=== PATIENT | male | born 1955 | race Caucasian/White ===

== ENCOUNTER 2016-12-05 16:51 | Inpatient (IN) | payer MEDICARE ==
[2016-12-05 17:31] LABS: AUTOMATED BASOPHIL 0.3 % (0-2); AUTOMATED EOSINOPHIL 0.5 % (0-5); AUTOMATED LYMPH 5.4 % (17-44); AUTOMATED MONOCYTE 6.1 % (3-10); AUTOMATED NEUTROPHIL 87.7 % (45-76); MPV 8.4 fL (7.4-10.4)
[2016-12-05 17:41] LABS: BLOOD UREA NITROGEN 10 MG/DL (9-20); CALC CORRECTED 9.1 MG/DL (8.4-10.2); CALCULATED OSMOLALITY 263 MOs/Kg (270-290); CHLORIDE 90 mEq/L (98-107); GLUCOSE 240 MG/DL (70-99); SODIUM LEVEL 133 mEq/L (137-146)
[2016-12-05] MEDS ORDERED: MORPHINE 4 MG/ML INJECTION IV ONE (18:12)
[2016-12-05] MEDS ORDERED: ONDANSETRON HCL 4 MG/2 ML VIAL IV ONE (18:12)
[2016-12-05] MEDS ORDERED: NS 1,000 ML IV ONE ×4 (18:12→23:59)
[2016-12-05] MEDS ORDERED: ACETAMINOPHEN 325 MG/TAB TABLET PO ONE (18:15)
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
[2016-12-05] MEDS ORDERED: Clindamycin 900 mg/D5W 50 ml 900 MG/50 ML IVB IV ONE (19:03)
[2016-12-05] MEDS ORDERED: POTASSIUM CHLORIDE 20 MEQ TAB PO ONE (19:29)
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
[2016-12-05] MEDS ORDERED: Pharmacy Review for Metformin - IV Contrast Given SCH (21:00)
[2016-12-05 21:25] LABS: ETOH-MGDL < 10 mg/dL
[2016-12-05 21:26] LABS: LEUKOCYTES/URINE NEG (NEGATIVE); NITRITE/URINE NEG (NEGATIVE); RBC/URINE 0-2 (0-2); URINE OCCULT BLOOD NEG (NEG/TRACE); WBC/URINE 0-2 (0-2)
[2016-12-05] MEDS ORDERED: DEXTROSE 25 GM/50 ML PFS IV PRN (21:57)
[2016-12-05] MEDS ORDERED: GLUCAGON 1 MG VIAL SQ PRN (21:57)
[2016-12-05] MEDS ORDERED: GLUCOSE (ORAL GEL) 15 GM TUBE PO PRN (21:57)
[2016-12-05] MEDS ORDERED: Pharmacy Order Set Alert SCH (22:00)
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
[2016-12-05] MEDS ORDERED: GUAIFEN 100 MG-DEXTROMETH 10 MG PER 5 ML PO PRN (22:09)
[2016-12-05] MEDS ORDERED: LORAZEPAM 1 MG TAB PO PRN ×3 (22:09)
[2016-12-05] MEDS ORDERED: ALBUTEROL 0.083% 3 ML NEB NEB PRN (22:09)
[2016-12-05] MEDS ORDERED: Docusate Sodium 100 MG CAP PO PRN (22:09)
[2016-12-05] MEDS ORDERED: ONDANSETRON HCL 4 MG/2 ML VIAL IV PRN (22:09)
[2016-12-05] MEDS ORDERED: BISACODYL 5 MG TAB PO PRN (22:09)
[2016-12-05] MEDS ORDERED: LORAZEPAM 2 MG/ML VIAL IV PRN ×3 (22:09)
[2016-12-05] MEDS ORDERED: PROMETHAZINE 25 MG/ML VIAL IV PRN (22:09)
[2016-12-05] MEDS ORDERED: SIMETHICONE 80 MG TAB PO PRN (22:09)
[2016-12-05] MEDS ORDERED: TEMAZEPAM 15 MG CAP PO PRN (22:09)
[2016-12-05] MEDS ORDERED: BENZONATATE 100 MG PERLES PO PRN (22:09)
[2016-12-05] MEDS ORDERED: SENNA CONCENTRATE TAB PO PRN (22:09)
[2016-12-05] MEDS: PIPERACILLIN AND TAZOBACTAM 3.375 GM in D5W 100 ML IV SCH (22:10)
[2016-12-05] MEDS: METOPROLOL TARTRATE 25 MG TAB PO SCH (22:10)
[2016-12-05] MEDS: Fluconazole 400 mg in NS 400 MG/200 ML RTU IV SCH (22:56)
[2016-12-05] MEDS: Clindamycin 600 mg/D5W 50 ml 600 MG/50 ML IVB IV SCH (22:59)
[2016-12-05] MEDS ORDERED: Vaccine Screening Complete SCH (23:00)
[2016-12-05] MEDS ORDERED: Alcohol Withdrawal Scale Orders XX SCH (23:00)
[2016-12-05] MEDS: FOLIC ACID 1 MG, THIAMINE 100 MG, VITAMINS, MULTIPLE 10 ML in NS 1,000 ML IV SCH ×4 (23:56)
[2016-12-06] MEDS: MORPHINE 2 MG/ML INJECTION IV PRN ×4 (00:24→23:45)
[2016-12-06] MEDS: Albuterol/Ipratropium Neb 3 ML NEB NEB SCH ×4 (01:33→20:35)
[2016-12-06] MEDS: PIPERACILLIN AND TAZOBACTAM 3.375 GM in D5W 100 ML IV SCH ×4 (03:01→21:14)
[2016-12-06 04:11] LABS: MPV 8.8 fL (7.4-10.4)
[2016-12-06 04:45] LABS: BLOOD UREA NITROGEN 10 MG/DL (9-20); CALCIUM 7.4 MG/DL (8.4-10.2); CALCULATED OSMOLALITY 262 MOs/Kg (270-290); CHLORIDE 98 mEq/L (98-107); GLUCOSE 242 MG/DL (70-99); SODIUM LEVEL 132 mEq/L (137-146)
[2016-12-06] MEDS: NS 1,000 ML IV SCH (05:00)
[2016-12-06] MEDS: REGULAR INSULIN 100 UNITS/ML - 3 ML VIAL SQ SCH ×4 (05:00→21:15)
[2016-12-06] MEDS ORDERED: Vancomycin HCl 0 MG in D5W 500 ML IV SCH (06:00)
[2016-12-06] MEDS: Clindamycin 600 mg/D5W 50 ml 600 MG/50 ML IVB IV SCH ×2 (07:37→14:49)
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
[2016-12-06] MEDS ORDERED: PNEUMOCOCCAL 0.5 ML VIAL IM ONE (08:00)
[2016-12-06] MEDS ORDERED: LABETALOL 20 MG/4 ML SYRINGE IV PRN (08:23)
[2016-12-06] MEDS ORDERED: HYDROmorphone 1 MG INJECTION IV PRN ×2 (08:23)
[2016-12-06] MEDS ORDERED: FENTANYL 100 MCG/2 ML VIAL IV PRN ×2 (08:23)
[2016-12-06] MEDS ORDERED: ONDANSETRON HCL 4 MG/2 ML VIAL IV PRN (08:23)
[2016-12-06] MEDS ORDERED: PROMETHAZINE 25 MG/ML VIAL IV PRN ×3 (08:23→09:23)
[2016-12-06] MEDS ORDERED: hydrALAZINE 20 MG/ML VIAL IV PRN (08:23)
[2016-12-06] MEDS ORDERED: MEPERIDINE 25 MG/ML TUBEX IV PRN (08:23)
[2016-12-06] MEDS ORDERED: ONDANSETRON HCL 4 MG ODT TAB PO PRN (08:23)
--- NOTE | 2016-12-06 08:24 | SC.ANESPOS ---
Post-Anesthesia Note LOC: Fully Awake Post-Anesthesia Assessment: Awake, Returned to Baseline, Hemodynamically Stable , Pain Control Adequate Phase I & II Recovery Complete: Yes Apparent Anesthesia Complication: No : N - Vital Signs Blood Pressure: 178/81 Pulse: 80 Resp Rate: 18 O2 Sat: 94 Temp: 98.5 F
[2016-12-06] MEDS: METOPROLOL TARTRATE 25 MG TAB PO SCH ×2 (08:25→21:14)
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
--- NOTE | 2016-12-06 09:18 | HIMOPRPT ---
DATE OF PROCEDURE: 12/06/16 PREOPERATIVE DIAGNOSIS: Right 5th toe gangrene with diabetic right foot infection POSTOPERATIVE DIAGNOSIS: same, final pathology pending PROCEDURES: Right 5th toe transmetatarsal amputation, wide drainage of right foot diabetic foot infection. SURGEON: Joe Lawrence MD ANESTHESIA: General COMPLICATIONS: None. SPECIMENS: Right 5th toe with surrounding tissue to pathology, purulent fluid right foot to microbiology PACKINGS AND DRAINS: Betadine-soaked Kerlix to the wound BLOOD LOSS: 3 cubic centimeters. OPERATIVE FINDINGS AND TECHNIQUE: With consent the patient was brought to the operating suite and placed in the supine position. Following general anesthesia , the right foot was prepped and draped in usual fashion. The obvious gangrenous change of the right 5th toe was identified. Using a 15 Blade the right 5th toe was surgically excised and incision was made laterally along the foot to the mid foot portion. A moderate amount of purulent fluid was identified. A portion of this was sent off for microbiologic characterization. The right toe down to the transmetatarsal area was amputated. The patient had a prior chronic fracture of the right 5th transmetatarsal bone. The 5th toe /digit was amputated at that point. There is no evidence of any necrotizing fasciitis. Generous wide debridement and drainage was accomplished using a blunt dissecting instrument. Wound was irrigated copiously. Hemostasis was achieved with electrocautery. The wound was then packed with Betadine-soaked Kerlix. After that the wound was covered with fluff dressings and wrapped in a Kerlix dressing. The patient tolerated the procedure well. Pathology is pending.
[2016-12-06] MEDS ORDERED: IBUPROFEN 600 MG TAB PO PRN (09:23)
[2016-12-06] MEDS ORDERED: DIPHENHYDRAMINE 25 MG CAP PO PRN (09:23)
[2016-12-06] MEDS ORDERED: METOCLOPRAMIDE 10 MG/2 ML VIAL IV ONE (10:00)
[2016-12-06] MEDS ORDERED: PROPOFOL 200 MG/20 ML VIAL IV ONE (10:00)
[2016-12-06] MEDS ORDERED: LIDOCAINE 4% 5 ML AMPULE NEB ONE (10:00)
[2016-12-06] MEDS ORDERED: FENTANYL 100 MCG/2 ML VIAL IV ONE (10:00)
[2016-12-06] MEDS ORDERED: ONDANSETRON HCL 4 MG/2 ML VIAL IV ONE (10:00)
[2016-12-06] MEDS ORDERED: FENTANYL 100 MCG/2 ML VIAL ONE (10:13)
[2016-12-06] MEDS: LISINOPRIL 20 MG TAB PO SCH (11:16)
[2016-12-06] MEDS: NICOTINE 21 MG PATCH TOP SCH (12:21)
[2016-12-06] MEDS ORDERED: CHAPSTICK LIP BALM ONE (13:24)
[2016-12-06] MEDS: OXYCODONE HCL 5 MG TABLET PO PRN ×2 (14:46→21:16)
[2016-12-06] MEDS: PROBIOTIC BLEND TAB PO SCH (17:23)
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
[2016-12-06] MEDS: Fluconazole 400 mg in NS 400 MG/200 ML RTU IV SCH (23:44)
[2016-12-06] MEDS: FOLIC ACID 1 MG, THIAMINE 100 MG, VITAMINS, MULTIPLE 10 ML in NS 1,000 ML IV SCH ×4 (23:48)
[2016-12-07] MEDS: Albuterol/Ipratropium Neb 3 ML NEB NEB SCH ×4 (02:03→19:50)
[2016-12-07] MEDS: PIPERACILLIN AND TAZOBACTAM 3.375 GM in D5W 100 ML IV SCH ×4 (03:41→22:05)
[2016-12-07] MEDS: NS 1,000 ML IV SCH ×2 (03:42→06:17)
[2016-12-07] MEDS: MORPHINE 2 MG/ML INJECTION IV PRN (04:03)
[2016-12-07 05:23] LABS: BLOOD UREA NITROGEN 9 MG/DL (9-20); CALCIUM 7.6 MG/DL (8.4-10.2); CALCULATED OSMOLALITY 257 MOs/Kg (270-290); CHLORIDE 100 mEq/L (98-107); GLUCOSE 160 MG/DL (70-99); SODIUM LEVEL 132 mEq/L (137-146)
[2016-12-07] MEDS: OXYCODONE HCL 5 MG TABLET PO PRN ×2 (06:17→16:42)
[2016-12-07] MEDS: REGULAR INSULIN 100 UNITS/ML - 3 ML VIAL SQ SCH ×4 (06:25→22:10)
[2016-12-07] MEDS ORDERED: PNEUMOCOCCAL 0.5 ML VIAL IM ONE (08:00)
--- NOTE | 2016-12-07 09:19 | PCM.SURGRO ---
- Subjective Post Op Day: 1 Patient: Reports: No new complaints - Objective / Physical Exam Vital Signs: Temperature: 99.5 F (12/07/16 07:53) HR: 82 (12/07/16 07:53)RR: 18 (12/07/16 07: 53) BP: 137/63 (12/07/16 07:53)Pulse Ox: 93 (12/07/16 08:00) General: Alert Respiratory: Diminished Cardiovascular: Regular rate and rhythm Extremities: Other (Right foot dressing intact) Laboratory/Diagnostics Reviewed: Laboratory Results - last 24 hr 12/05/16 12/06/16 12/06/16 21:10 10:31 11:47 Sodium Potassium Chloride Carbon Dioxide Anion Gap BUN Creatinine Estimated GFR (MDRD) Glucose POC Capillary Glucose 247 H 216 H Calculated Osmolality Calcium Ur Random Microalbumin 244.8 Vancomycin Trough 12/06/16 12/06/16 12/07/16 16:11 20:52 05:00 Sodium 132 L Potassium 3.5 Chloride 100 Carbon Dioxide 25 Anion Gap 11 BUN 9 Creatinine 0.70 Estimated GFR (MDRD) > 60 Glucose 160 H POC Capillary Glucose 200 H 209 H Calculated Osmolality 257 L Calcium 7.6 L Ur Random Microalbumin Vancomycin Trough 10.8 12/07/16 06:25 Sodium Potassium Chloride Carbon Dioxide Anion Gap BUN Creatinine Estimated GFR (MDRD) Glucose POC Capillary Glucose 179 H Calculated Osmolality Calcium Ur Random Microalbumin Vancomycin Trough - Assessment and Plan (1) Gangrene of foot Acute I96 - GANGRENE, NOT ELSEWHERE CLASSIFIED Present on Admission: Yes Comment/Plan: Postop day 1. Status post right 5th toe transmetatarsal amputation. He also had drainage of the extensive right foot infection likely due to a diabetic foot. Will consult physical therapy to see if the wound VAC can be placed on this wound. Alternatively will start Aquacel dressings to the area. Hopefully with a wound VAC this area will heal. At some point will check noninvasive vascular studies to see if he has vascular supply sufficient for wound healing. Continue antibiotic therapy. Continue medical management of his comorbid conditions.
[2016-12-07] MEDS: METOPROLOL TARTRATE 25 MG TAB PO SCH ×2 (09:51→23:58)
[2016-12-07] MEDS: LISINOPRIL 20 MG TAB PO SCH (09:51)
[2016-12-07] MEDS: NICOTINE 21 MG PATCH TOP SCH (09:52)
[2016-12-07] MEDS: PROBIOTIC BLEND TAB PO SCH ×2 (12:14→17:40)
--- NOTE | 2016-12-07 17:17 | GENMEDPROG ---
Subjective Note: Patient awake and alert no complaint today. Doing well postoperative day 1. Notes Reviewed: Yes Events from last night noted and discussed with Clinical Staff Current Medication List: Reviewed Currently: Denies: Abdominal Pain, Fever/Chills, Ambulating DVT Prophylaxis: Yes - Physical Examination Vital Signs and I&O: Last Vital Signs Temp 98.1 F 12/07/16 16:00 Pulse 82 12/07/16 16:00 Resp 18 12/07/16 16:00 BP 157/70 12/07/16 16:00 Pulse Ox 90 L 12/07/16 16:00 Oxygen Pulse Oxygen Saturation 90 O2 Device Nasal Cannula Oxygen Flow Rate 2 Fraction of Inspired Oxygen ( FIO2) Intake & Output 12/04/16 12/05/16 12/06/16 12/07/16 23:59 23:59 23:59 23:59 Intake Total 1500 6182 1200 Output Total 2485 475 Balance 1500 3697 725 Patient's weight 80.541 kg 80.995 kg 86.364 kg General: Alert Respiratory: Diminished Cardiovascular: Regular rate and rhythm GI: Normal bowel sounds (normal active sounds), Soft (non-distended), Non tender , No hepatospenomegaly, No masses Extremities/Musculoskeletal: Other (Right foot dressing intact) Skin: Warm,Dry and Intact, No rashes, No significant lesion Neurological: Strength at 5/5 X4 ext (Motor 5/5 throughout.), Normal tone, Cranial nerves 3-12 NL ( 2-12 grossly intact.) Lab/DI/Studies Reviewed: Abnormal Lab Results 12/06/16 12/07/16 12/07/16 20:52 05:00 06:25 Sodium 132 L Glucose 160 H POC Capillary Glucose 209 H 179 H Calculated Osmolality 257 L Calcium 7.6 L 12/07/16 12/07/16 11:08 16:20 Sodium Glucose POC Capillary Glucose 220 H 127 H Calculated Osmolality Calcium - Assessment (1) Cellulitis of right foot Acute L03.115 - CELLULITIS OF RIGHT LOWER LIMB Comment/Plan: Status post amputation of fifth toe of the right foot. (2) Gangrene of foot Acute I96 - GANGRENE, NOT ELSEWHERE CLASSIFIED Comment/Plan: For surgical assistance appreciated dressing clean and dry patient for wound VAC. (3) Sepsis Acute A41.9 - SEPSIS, UNSPECIFIED ORGANISM Comment/Plan: IV antibiotics will include Zosyn vancomycin and Diflucan for the incidental yeast in urine. Do not feel the clindamycin is necessary given the activity of the Zosyn and the fact that vancomycin will be most effective against staph. Await cultures. (4) Type 2 diabetes mellitus with diabetic polyneuropathy Chronic E11.42 - TYPE 2 DIABETES MELLITUS WITH DIABETIC POLYNEUROPATHY Qualifiers: Diabetes mellitus adjunct faculty for medical terminology insulin use: without adjunct faculty for medical terminology use Qualified Code(s): E11.42 - Type 2 diabetes mellitus with diabetic polyneuropathy Comment/Plan: Plan: Hold oral diabetes medications. Check fingerstick blood sugars q ac and hs. Sliding scale insulin. Ordered A1c and urine microalbumin. (5) Tobacco abuse Acute Z72.0 - TOBACCO USE Comment/Plan: Counseled to quit. I advised him this is the worse thing he can do. It is like pouring gasoline on a fire. Nicotine substitution will be offered. - Plan Continue IV antibiotics continue wound VAC and discharge planning. Patient will likely need skilled facility. Case Care Discussed with: Patient Education/Counseling Given To: Patient Education/Counseling Given Regarding: Diagnosis, Treatment, Prognosis, Disposition Plan Total Time: 45 mins Critical Care: No Couseling Time (>50% in counseling/coordination): No
--- NOTE | 2016-12-07 19:59 | GENMEDPROG ---
Chief Complaint: CRITICAL CARE NOTE S: NURSE CALLED. PATIENT IN DISTRESS. WORSENING SHORTNESS OF BREATH AND HYPOXIA. Subjective Note: CRITICAL CARE NOTE S: NURSE CALLED. PATIENT IN DISTRESS. WORSENING SHORTNESS OF BREATH AND HYPOXIA. ROS: GENERAL: No Fever. Chills, diaphoresis. Positive for fatigue/malaise. HEENT: No nasal discharge or bleeding. No throat pain or swelling. RESPIRATORY: Cough, wheezing, and shortness of breath. CARDIOVASCULAR: No chest pain or palpitations. GI: No abdominal pain, nausea, vomiting, diarrhea, constipation, or bloody stool. NEUROLOGICAL: No headache or focal weakness. INTEGUMENT: no rashes, itching, or lesions. MUSCULOSKELETAL: no new pain or joint swelling. GENITOURINARY: No dysuria or hematuria. ENDOCRINE: No polyuria or polydipsia. HEME: No chronic anemia, bleeding, or easy bruising. Notes Reviewed: Yes Events from last night noted and discussed with Clinical Staff Current Medication List: Reviewed Currently: Reports: Cough, Wheezing, MOORE, SOB, Tobacco Use/Hx DVT Prophylaxis: Yes - Physical Examination Vital Signs and I&O: Last Vital Signs Temp 98.2 F 12/07/16 19:33 Pulse 104 12/07/16 19:54 Resp 28 H 12/07/16 19:54 BP 158/80 12/07/16 19:33 Pulse Ox 91 12/07/16 19:54 Oxygen Pulse Oxygen Saturation 91 O2 Device Venturi Mask Oxygen Flow Rate 3 Fraction of Inspired Oxygen ( 55 FIO2) Intake & Output 12/05/16 12/06/16 12/07/16 12/08/16 05:59 05:59 05:59 05:59 Intake Total 4244 3438 2585 Output Total 800 1685 1075 Balance 3444 1753 1510 Patient's weight 80.995 kg 86.364 kg General: Alert Respiratory: Diminished Cardiovascular: Regular rate and rhythm Extremities/Musculoskeletal: Other (Right foot dressing intact) GENERAL: Ill-appearing, well nourished, in acute distress. HEENT: Normocephalic, atraumatic; pupils equal and round. Nares patent, without discharge or bleeding. No oropharyngeal lesions or erythema. Mucous membranes are dry. NECK: is supple, no masses, trachea midline. RESPIRATORY: Clear to auscultation bilaterally. Chest wall movements are symmetric. Tachypnea, severe. Use of accessory muscles to breathe. Bilateral coarse breath sounds and wheezing. CARDIOVASCULAR: Normal S1, S2. No murmurs, rubs, or gallops. PMI non-displaced. Carotids: no carotid bruits. Tachycardia. DP pulses 2+ bilaterally. GI: soft, nontender, non-distended, normal active bowel sounds. No hepatosplenomegaly. INTEGUMENT: Foot: right foot with 5th toe and portion of lateral foot removed. Wound vac over site. No erythema or edema at site. Right foot still with some erythema but decreased from admission. Red streaks on lower right leg but decreased from admission. Otherwise clean, dry, and intact. No rashes. MUSCULOSKELETAL: Moving all extremities. No cyanosis. No clubbing. Edema: none bilaterally. NEUROLOGICAL: Cranial nerves 2-12 grossly intact. Motor 4/5 throughout. Reflexes : 2+ bilaterally. Babinski: toes downgoing bilaterally. Sensory grossly intact to light touch. No pronator drift. PSYCHIATRIC: Fully oriented. Normal and appropriate affect. LYMPHATIC: No cervical lymphadenopathy. No supraclavicular lymphadenopathy. Lab/DI/Studies Reviewed: Laboratory Tests 12/05/16 12/05/16 12/05/16 17:18 17:18 17:18 WBC 18.8 H RBC 4.66 L Hgb 14.3 Hct 43.1 MCV 93 MCH 30.8 MCHC 33.3 RDW 14.1 Plt Count 311 MPV 8.4 Neut % (Auto) 87.7 H Lymph % (Auto) 5.4 L Nelson % (Auto) 6.1 Eos % (Auto) 0.5 Baso % (Auto) 0.3 Absolute Neuts (auto) 16.36 H Absolute Lymphs (auto) 0.94 Puncture Site pH pCO2 pO2 HCO3 Total CO2 Base Excess Vent Mode FiO2 % Specimen Drawn By Sodium 133 L Potassium 3.4 L Chloride 90 L Carbon Dioxide 31 Anion Gap 15 BUN 10 Creatinine 0.80 Estimated GFR (MDRD) > 60 Glucose 240 H POC Capillary Glucose Hemoglobin A1c Calculated Osmolality 263 L Lactic Acid 2.8 H Calcium 9.0 Corrected Calcium 9.1 Phosphorus Magnesium Total Bilirubin 1.1 AST 29 ALT 32 Alkaline Phosphatase 98 Creatine Kinase Troponin I [id number] Pept Total Protein 8.0 Albumin 3.9 Urine Color Urine Clarity Urine pH Ur Specific [place] Urine Protein Urine Glucose (UA) Urine Ketones Urine Occult Blood Urine Nitrite Urine Bilirubin Urine Urobilinogen Ur Leukocyte Esterase Urine RBC Urine WBC Urine Bacteria Urine Mucus Urine Yeast Ur Random Microalbumin Vancomycin Trough Plasma/Serum Ethyl Alc 12/05/16 12/05/16 12/05/16 17:18 17:18 17:18 WBC RBC Hgb Hct MCV MCH MCHC RDW Plt Count MPV Neut % (Auto) Lymph % (Auto) Nelson % (Auto) Eos % (Auto) Baso % (Auto) Absolute Neuts (auto) Absolute Lymphs (auto) Puncture Site pH pCO2 pO2 HCO3 Total CO2 Base Excess Vent Mode FiO2 % Specimen Drawn By Sodium Potassium Chloride Carbon Dioxide Anion Gap BUN Creatinine Estimated GFR (MDRD) Glucose POC Capillary Glucose Hemoglobin A1c Calculated Osmolality Lactic Acid Calcium Corrected Calcium Phosphorus Magnesium 2.10 1.70 Total Bilirubin AST ALT Alkaline Phosphatase Creatine Kinase 45 L Troponin I 0.06 [id number] Pept Total Protein Albumin Urine Color Urine Clarity Urine pH Ur Specific [place] Urine Protein Urine Glucose (UA) Urine Ketones Urine Occult Blood Urine Nitrite Urine Bilirubin Urine Urobilinogen Ur Leukocyte Esterase Urine RBC Urine WBC Urine Bacteria Urine Mucus Urine Yeast Ur Random Microalbumin Vancomycin Trough Plasma/Serum Ethyl Alc 12/05/16 12/05/16 12/05/16 17:18 19:59 21:10 WBC RBC Hgb Hct MCV MCH MCHC RDW Plt Count MPV Neut % (Auto) Lymph % (Auto) Nelson % (Auto) Eos % (Auto) Baso % (Auto) Absolute Neuts (auto) Absolute Lymphs (auto) Puncture Site pH pCO2 pO2 HCO3 Total CO2 Base Excess Vent Mode FiO2 % Specimen Drawn By Sodium Potassium Chloride Carbon Dioxide Anion Gap BUN Creatinine Estimated GFR (MDRD) Glucose POC Capillary Glucose Hemoglobin A1c 7.5 H Calculated Osmolality Lactic Acid Calcium Corrected Calcium Phosphorus Magnesium Total Bilirubin AST ALT Alkaline Phosphatase Creatine Kinase 36 L Troponin I 0.07 [id number]-[id number] Pept Total Protein Albumin Urine Color Rebecca Urine Clarity Clear Urine pH 6.0 Ur Specific [place] 1.005 Urine Protein 2+ H Urine Glucose (UA) 2+ Urine Ketones Neg Urine Occult Blood Neg Urine Nitrite Neg Urine Bilirubin Neg Urine Urobilinogen 8 H Ur Leukocyte Esterase Neg Urine RBC 0-2 Urine WBC 0-2 Urine Bacteria Few Urine Mucus Occ Urine Yeast Few H Ur Random Microalbumin Vancomycin Trough Plasma/Serum Ethyl Alc 12/05/16 12/05/16 12/05/16 21:10 22:13 22:13 WBC RBC Hgb Hct MCV MCH MCHC RDW Plt Count MPV Neut % (Auto) Lymph % (Auto) Nelson % (Auto) Eos % (Auto) Baso % (Auto) Absolute Neuts (auto) Absolute Lymphs (auto) Puncture Site pH pCO2 pO2 HCO3 Total CO2 Base Excess Vent Mode FiO2 % Specimen Drawn By Sodium Potassium Chloride Carbon Dioxide Anion Gap BUN Creatinine Estimated GFR (MDRD) Glucose POC Capillary Glucose Hemoglobin A1c Calculated Osmolality Lactic Acid 1.0 Calcium Corrected Calcium Phosphorus Magnesium Total Bilirubin AST ALT Alkaline Phosphatase Creatine Kinase 41 L Troponin I 0.06 [id number]-S-Pdrospipwce Pept Total Protein Albumin Urine Color Urine Clarity Urine pH Ur Specific [place] Urine Protein Urine Glucose (UA) Urine Ketones Urine Occult Blood Urine Nitrite Urine Bilirubin Urine Urobilinogen Ur Leukocyte Esterase Urine RBC Urine WBC Urine Bacteria Urine Mucus Urine Yeast Ur Random Microalbumin 244.8 Vancomycin Trough Plasma/Serum Ethyl Alc 12/06/16 12/06/16 12/06/16 00:01 03:10 03:10 WBC 12.9 H RBC 3.65 L Hgb 11.3 L D Hct 34.1 L MCV 94 MCH 31.0 MCHC 33.2 RDW 14.1 Plt Count 229 MPV 8.8 Neut % (Auto) Lymph % (Auto) Nelson % (Auto) Eos % (Auto) Baso % (Auto) Absolute Neuts (auto) Absolute Lymphs (auto) Puncture Site pH pCO2 pO2 HCO3 Total CO2 Base Excess Vent Mode FiO2 % Specimen Drawn By Sodium 132 L Potassium 4.0 Chloride 98 Carbon Dioxide 27 Anion Gap 11 BUN 10 Creatinine 0.70 Estimated GFR (MDRD) > 60 Glucose 242 H POC Capillary Glucose Hemoglobin A1c Calculated Osmolality 262 L Lactic Acid Calcium 7.4 L Corrected Calcium Phosphorus 3.4 Magnesium Total Bilirubin AST ALT Alkaline Phosphatase Creatine Kinase Troponin I [id number]-Rnmfcmippxh Pept Total Protein Albumin Urine Color Urine Clarity Urine pH Ur Specific [place] Urine Protein Urine Glucose (UA) Urine Ketones Urine Occult Blood Urine Nitrite Urine Bilirubin Urine Urobilinogen Ur Leukocyte Esterase Urine RBC Urine WBC Urine Bacteria Urine Mucus Urine Yeast Ur Random Microalbumin Vancomycin Trough Plasma/Serum Ethyl Alc 12/06/16 12/06/16 12/06/16 04:56 10:31 11:47 WBC RBC Hgb Hct MCV MCH MCHC RDW Plt Count MPV Neut % (Auto) Lymph % (Auto) Nelson % (Auto) Eos % (Auto) Baso % (Auto) Absolute Neuts (auto) Absolute Lymphs (auto) Puncture Site pH pCO2 pO2 HCO3 Total CO2 Base Excess Vent Mode FiO2 % Specimen Drawn By Sodium Potassium Chloride Carbon Dioxide Anion Gap BUN Creatinine Estimated GFR (MDRD) Glucose POC Capillary Glucose 222 H 247 H 216 H Hemoglobin A1c Calculated Osmolality Lactic Acid Calcium Corrected Calcium Phosphorus Magnesium Total Bilirubin AST ALT Alkaline Phosphatase Creatine Kinase Troponin I [id number]-Ijstrptqhyr Pept Total Protein Albumin Urine Color Urine Clarity Urine pH Ur Specific [place] Urine Protein Urine Glucose (UA) Urine Ketones Urine Occult Blood Urine Nitrite Urine Bilirubin Urine Urobilinogen Ur Leukocyte Esterase Urine RBC Urine WBC Urine Bacteria Urine Mucus Urine Yeast Ur Random Microalbumin Vancomycin Trough Plasma/Serum Ethyl Alc 12/06/16 12/06/16 12/07/16 16:11 20:52 05:00 WBC RBC Hgb Hct MCV MCH MCHC RDW Plt Count MPV Neut % (Auto) Lymph % (Auto) Nelson % (Auto) Eos % (Auto) Baso % (Auto) Absolute Neuts (auto) Absolute Lymphs (auto) Puncture Site pH pCO2 pO2 HCO3 Total CO2 Base Excess Vent Mode FiO2 % Specimen Drawn By Sodium 132 L Potassium 3.5 Chloride 100 Carbon Dioxide 25 Anion Gap 11 BUN 9 Creatinine 0.70 Estimated GFR (MDRD) > 60 Glucose 160 H POC Capillary Glucose 200 H 209 H Hemoglobin A1c Calculated Osmolality 257 L Lactic Acid Calcium 7.6 L Corrected Calcium Phosphorus Magnesium Total Bilirubin AST ALT Alkaline Phosphatase Creatine Kinase Troponin I [id number]-Ruimqhbtfbf Pept Total Protein Albumin Urine Color Urine Clarity Urine pH Ur Specific [place] Urine Protein Urine Glucose (UA) Urine Ketones Urine Occult Blood Urine Nitrite Urine Bilirubin Urine Urobilinogen Ur Leukocyte Esterase Urine RBC Urine WBC Urine Bacteria Urine Mucus Urine Yeast Ur Random Microalbumin Vancomycin Trough 10.8 Plasma/Serum Ethyl Alc 12/07/16 12/07/16 12/07/16 06:25 11:08 14:50 WBC RBC Hgb Hct MCV MCH MCHC RDW Plt Count MPV Neut % (Auto) Lymph % (Auto) [place] % (Auto) Eos % (Auto) Baso % (Auto) Absolute Neuts (auto) Absolute Lymphs (auto) Puncture Site pH pCO2 pO2 HCO3 Total CO2 Base Excess Vent Mode FiO2 % Specimen Drawn By Sodium Potassium 3.9 Chloride Carbon Dioxide Anion Gap BUN Creatinine Estimated GFR (MDRD) Glucose POC Capillary Glucose 179 H 220 H Hemoglobin A1c Calculated Osmolality Lactic Acid Calcium Corrected Calcium Phosphorus Magnesium 1.90 Total Bilirubin AST ALT Alkaline Phosphatase Creatine Kinase Troponin I [id number] Pept Total Protein Albumin Urine Color Urine Clarity Urine pH Ur Specific [place] Urine Protein Urine Glucose (UA) Urine Ketones Urine Occult Blood Urine Nitrite Urine Bilirubin Urine Urobilinogen Ur Leukocyte Esterase Urine RBC Urine WBC Urine Bacteria Urine Mucus Urine Yeast Ur Random Microalbumin Vancomycin Trough Plasma/Serum Ethyl Alc 12/07/16 12/07/16 12/07/16 16:20 19:29 20:28 WBC RBC Hgb Hct MCV MCH MCHC RDW Plt Count MPV Neut % (Auto) Lymph % (Auto) Nelson % (Auto) Eos % (Auto) Baso % (Auto) Absolute Neuts (auto) Absolute Lymphs (auto) Puncture Site Left radial pH 7.370 pCO2 40.0 pO2 65.0 L HCO3 23.1 Total CO2 24.3 Base Excess -2.0 Vent Mode Venti mask FiO2 % 55 Specimen Drawn By Kaytr Sodium Potassium Chloride Carbon Dioxide Anion Gap BUN Creatinine Estimated GFR (MDRD) Glucose POC Capillary Glucose 127 H 195 H Hemoglobin A1c Calculated Osmolality Lactic Acid Calcium Corrected Calcium Phosphorus Magnesium Total Bilirubin AST ALT Alkaline Phosphatase Creatine Kinase Troponin I [id number]-[id number] Pept Total Protein Albumin Urine Color Urine Clarity Urine pH Ur Specific [place] Urine Protein Urine Glucose (UA) Urine Ketones Urine Occult Blood Urine Nitrite Urine Bilirubin Urine Urobilinogen Ur Leukocyte Esterase Urine RBC Urine WBC Urine Bacteria Urine Mucus Urine Yeast Ur Random Microalbumin Vancomycin Trough Plasma/Serum Ethyl Alc Chest x-ray, ordered and viewed personally: Impression: CHF with moderately severe pulmonary edema. - Assessment (1) Acute pulmonary edema Acute J81.0 - ACUTE PULMONARY EDEMA Comment/Plan: With respiratory distress. Plan: BiPAP. IV Lasix. (2) Acute respiratory failure with hypoxia Acute J96.01 - ACUTE RESPIRATORY FAILURE WITH HYPOXIA Comment/Plan: Suspect due to pulmonary edema. Tachypnea that is not resolving on 100% NRB. Plan: BiPAP. IV Lasix. Lower IVFs. (3) Sepsis Acute A41.9 - SEPSIS, UNSPECIFIED ORGANISM Qualifiers: Sepsis type: S (4) Cellulitis of right foot Acute L03.115 - CELLULITIS OF RIGHT LOWER LIMB (5) Gangrene of foot Acute I96 - GANGRENE, NOT ELSEWHERE CLASSIFIED (6) Type 2 diabetes mellitus with diabetic polyneuropathy Acute E11.42 - TYPE 2 DIABETES MELLITUS WITH DIABETIC POLYNEUROPATHY Qualifiers: Diabetes mellitus termite helper insulin use: without intermediate use Qualified Code(s): E11.42 - Type 2 diabetes mellitus with diabetic polyneuropathy (7) Hypokalemia Acute E87.6 - HYPOKALEMIA (8) Alcohol withdrawal Acute F10.239 - ALCOHOL DEPENDENCE WITH WITHDRAWAL, UNSPECIFIED Qualifiers: Complication of substance-induced condition: with unspecified complication Qualified Code(s): F10.239 - Alcohol dependence with withdrawal, unspecified (9) Tobacco abuse Acute Z72.0 - TOBACCO USE (10) Yeast cystitis Acute B37.41 - CANDIDAL CYSTITIS AND URETHRITIS - Plan PLAN: (1) Pulmonary Edema Acute Not present on admission. Plan: BiPAP. IV Lasix. (2) Acute respiratory failure with hypoxia Acute Not present on admission. J96.01. Suspect due to pulmonary edema. Tachypnea that is not resolving on 100% NRB. Plan: BiPAP. IV Lasix. Lower IVFs. (3) Sepsis Acute A41.9 - SEPSIS, UNSPECIFIED ORGANISM Qualifiers: Sepsis type: S Present on admission. Source: gangrene. Plan: Sepsis order set. IV antibiotics. IV fluids to provide volume. Monitor for signs of volume depletion, monitor blood pressure carefully. If still hypotensive with IV fluids consider pressors. Close monitoring. Telemetry. IVF: initial IVF 30 mL/kg x 1, then 250 mL/hr x 1 L, then maintenance IVF. (4) Cellulitis of right foot Acute L03.115 - CELLULITIS OF RIGHT LOWER LIMB Improving. Continue IV antibiotics. (5) Gangrene of foot Acute I96 - GANGRENE, NOT ELSEWHERE CLASSIFIED Noted. Had surgery and no further evidence of gangrene. Continue to monitor. (6) Type 2 diabetes mellitus with diabetic polyneuropathy Acute E11.42 - TYPE 2 DIABETES MELLITUS WITH DIABETIC POLYNEUROPATHY Qualifiers: Diabetes mellitus termite helper insulin use: without intermediate use Qualified Code(s): E11.42 - Type 2 diabetes mellitus with diabetic polyneuropathy Plan: Hold oral diabetes medications. Check fingerstick blood sugars q ac and hs. Sliding scale insulin. (7) Hypokalemia Acute E87.6 - HYPOKALEMIA Replace. (8) Alcohol withdrawal Acute F10.239 - ALCOHOL DEPENDENCE WITH WITHDRAWAL, UNSPECIFIED Qualifiers: Complication of substance-induced condition: with unspecified complication Qualified Code(s): F10.239 - Alcohol dependence with withdrawal, unspecified Plan: Detox protocol. Checked blood alcohol level. Start patient on prn Ativan for breakthrough symptoms. Magnesium, phosphorus, other labs ordered. Give IV thiamine/folate/MVI now, then eventually start patient on PO thiamine/ MVI. Nurse to monitor patient closely and check withdrawal symptom scores. Patient advised to stop drinking but to do so under medical supervision because of DT's risk. Patient advised to take thiamine and multivitamin daily after discharge. (9) Tobacco abuse Acute Z72.0 - TOBACCO USE Counseled to quit. (10) Yeast cystitis Suspected B37.41 - CANDIDAL CYSTITIS AND URETHRITIS Plan: Added IV fluconazole due to yeast in urine.
--- NOTE | 2016-12-07 20:23 | DIRPT ---
CLINICAL DATA: Worsening hypoxia, right foot cellulitis EXAM: PORTABLE CHEST 1 VIEW COMPARISON: 12/05/2016 FINDINGS: Moderate cardiac enlargement. Significantly increased interstitial prominence bilaterally. Indistinct bilateral perihilar vessels with bilateral perihilar increased attenuation. Small pleural effusions. IMPRESSION: Congestive heart failure with moderately severe pulmonary edema Electronically Signed By: Wagner Means M.D. On: 12/07/2016 20:20
[2016-12-07 20:33] LABS: ABG Draw Site Left Radial; ALLEN'S TEST PASS; MODE VENTI MASK RATE; TCO2 24.3 MMOL/L (23-27)
[2016-12-07] MEDS ORDERED: FUROSEMIDE 40 MG/4 ML VIAL IV ONE (21:16)
[2016-12-07] MEDS: Fluconazole 400 mg in NS 400 MG/200 ML RTU IV SCH (23:58)
[2016-12-08] MEDS ORDERED: NS 1,000 ML IV SCH (00:18)
[2016-12-08] MEDS: Albuterol/Ipratropium Neb 3 ML NEB NEB SCH ×4 (02:51→20:54)
[2016-12-08] MEDS: PIPERACILLIN AND TAZOBACTAM 3.375 GM in D5W 100 ML IV SCH ×3 (03:06→15:28)
[2016-12-08 04:47] LABS: AUTOMATED BASOPHIL 0.4 % (0-2); AUTOMATED EOSINOPHIL 0.5 % (0-5); AUTOMATED LYMPH 5.6 % (17-44); AUTOMATED MONOCYTE 8.4 % (3-10); AUTOMATED NEUTROPHIL 85.1 % (45-76); MPV 8.5 fL (7.4-10.4)
[2016-12-08 04:56] LABS: BLOOD UREA NITROGEN 10 MG/DL (9-20); CALCULATED OSMOLALITY 259 MOs/Kg (270-290); CHLORIDE 97 mEq/L (98-107); GLUCOSE 169 MG/DL (70-99); SODIUM LEVEL 133 mEq/L (137-146)
[2016-12-08] MEDS: FOLIC ACID 1 MG, THIAMINE 100 MG, VITAMINS, MULTIPLE 10 ML in NS 1,000 ML IV SCH ×12 (05:26→20:33)
[2016-12-08] MEDS: REGULAR INSULIN 100 UNITS/ML - 3 ML VIAL SQ SCH ×4 (06:36→21:27)
[2016-12-08] MEDS ORDERED: KCL 20 mEq/100 ml Premix Run 20 MEQ/100 ML RTU IV ONE (08:00)
[2016-12-08] MEDS ORDERED: Magnesium Sulfate 2 gm/D5W 2 GM/50 ML RTU IV ONE (08:00)
[2016-12-08] MEDS ORDERED: PNEUMOCOCCAL 0.5 ML VIAL IM ONE (08:00)
--- NOTE | 2016-12-08 08:18 | PCM.SURGRO ---
- Subjective Post Op Day: 2 Patient: Reports: No new complaints - Objective / Physical Exam Vital Signs: Temperature: 97.7 F (12/08/16 08:11) HR: 68 (12/08/16 08:11)RR: 24 (12/08/16 08: 11) BP: 149/71 (12/08/16 08:11)Pulse Ox: 96 (12/08/16 08:11) Respiratory: Diminished Cardiovascular: Regular rate and rhythm Extremities: Other (Right foot with wound VAC dressing in place) Laboratory/Diagnostics Reviewed: Laboratory Results - last 24 hr 12/07/16 12/07/16 12/07/16 11:08 14:50 16:20 WBC RBC Hgb Hct MCV MCH MCHC RDW Plt Count MPV Neut % (Auto) Lymph % (Auto) [place] % (Auto) Eos % (Auto) Baso % (Auto) Absolute Neuts (auto) Absolute Lymphs (auto) Puncture Site pH pCO2 pO2 HCO3 Total CO2 Base Excess Vent Mode FiO2 % Specimen Drawn By Sodium Potassium 3.9 Chloride Carbon Dioxide Anion Gap BUN Creatinine Estimated GFR (MDRD) Glucose POC Capillary Glucose 220 H 127 H Calculated Osmolality Calcium Magnesium 1.90 12/07/16 12/07/16 12/08/16 19:29 20:28 04:15 WBC 13.1 H RBC 3.68 L Hgb 11.1 L Hct 33.8 L MCV 92 MCH 30.2 MCHC 32.8 L RDW 14.2 Plt Count 353 MPV 8.5 Neut % (Auto) 85.1 H Lymph % (Auto) 5.6 L [place] % (Auto) 8.4 Eos % (Auto) 0.5 Baso % (Auto) 0.4 Absolute Neuts (auto) 11.14 H Absolute Lymphs (auto) 0.66 Puncture Site Left radial pH 7.370 pCO2 40.0 pO2 65.0 L HCO3 23.1 Total CO2 24.3 Base Excess -2.0 Vent Mode Venti mask FiO2 % 55 Specimen Drawn By Kaytr Sodium Potassium Chloride Carbon Dioxide Anion Gap BUN Creatinine Estimated GFR (MDRD) Glucose POC Capillary Glucose 195 H Calculated Osmolality Calcium Magnesium 12/08/16 12/08/16 04:15 05:37 WBC RBC Hgb Hct MCV MCH MCHC RDW Plt Count MPV Neut % (Auto) Lymph % (Auto) [place] % (Auto) Eos % (Auto) Baso % (Auto) Absolute Neuts (auto) Absolute Lymphs (auto) Puncture Site pH pCO2 pO2 HCO3 Total CO2 Base Excess Vent Mode FiO2 % Specimen Drawn By Sodium 133 L Potassium 3.6 Chloride 97 L Carbon Dioxide 28 Anion Gap 12 BUN 10 Creatinine 1.00 Estimated GFR (MDRD) > 60 Glucose 169 H POC Capillary Glucose 169 H Calculated Osmolality 259 L Calcium 8.0 L Magnesium 1.70 - Assessment and Plan (1) Gangrene of foot Resolved I96 - GANGRENE, NOT ELSEWHERE CLASSIFIED Present on Admission: Yes Comment/Plan: Continue wound VAC. The wound will take weeks to months to heal. Consider vascular assessment at some point with noninvasive segmental pressure studies to assess the adequacy for wound healing. Continue medical management of comorbid conditions.
[2016-12-08] MEDS: NICOTINE 21 MG PATCH TOP SCH (09:16)
[2016-12-08] MEDS: POTASSIUM CHLORIDE 20 MEQ TAB PO SCH ×2 (12:48→17:21)
[2016-12-08] MEDS: MAGNESIUM OXIDE 400 MG TAB PO SCH ×3 (12:48→17:21)
[2016-12-08] MEDS: METOPROLOL TARTRATE 25 MG TAB PO SCH ×2 (12:49→21:27)
[2016-12-08] MEDS: LISINOPRIL 20 MG TAB PO SCH (12:49)
[2016-12-08] MEDS: PROBIOTIC BLEND TAB PO SCH ×2 (12:50→17:20)
[2016-12-08] MEDS ORDERED: FUROSEMIDE 40 MG/4 ML VIAL IV ONE (16:00)
--- NOTE | 2016-12-08 16:04 | GENMEDPROG ---
Subjective Note: Patient with no new complaints. Wound VAC is in place. He had an episode of hypoxemia last night looks like it was brought on by pulmonary edema from over zealous fluids Notes Reviewed: Yes Events from last night noted and discussed with Clinical Staff Current Medication List: Reviewed Currently: Reports: SOB (Very mild). Denies: Abdominal Pain, Fever/Chills, Ambulating DVT Prophylaxis: Yes - Physical Examination Vital Signs and I&O: Last Vital Signs Temp 98.3 F 12/08/16 11:40 Pulse 70 12/08/16 14:00 Resp 22 12/08/16 11:40 BP 142/71 12/08/16 11:40 Pulse Ox 95 12/08/16 11:40 Oxygen Pulse Oxygen Saturation 95 O2 Device BiPAP Oxygen Flow Rate 3 Fraction of Inspired Oxygen ( 45 FIO2) Intake & Output 12/05/16 12/06/16 12/07/16 12/08/16 23:59 23:59 23:59 23:59 Intake Total 1500 6182 2585 1317 Output Total 2485 1675 3425 Balance 1500 3697 910 -2108 Patient's weight 80.541 kg 80.995 kg 86.364 kg 86.239 kg General: Alert, Oriented x3, No acute distress, Well appearing, Well nourished HEENT: Normal (Normocephalic, atraumatic;EOMI.Sclera white, Nares patent, without discharge or bleeding. No oropharyngeal lesions or erythema. Mucous membranes are dry.) Neck: Non-tender, Full range of motion, Normal Trachea alignment, Normal inspection (No cervical lymphadenopathy. No supraclavicular lymphadenopathy.), No Masses palpable, Supple Respiratory: Diminished Cardiovascular: Regular rate and rhythm GI: Normal bowel sounds (normal active sounds), Soft (non-distended), Non tender , No hepatospenomegaly, No masses Extremities/Musculoskeletal: Other (Right foot with wound VAC dressing in place) Skin: Warm,Dry and Intact, No rashes, No significant lesion Neurological: Strength at 5/5 X4 ext (Motor 5/5 throughout.), Normal tone, Cranial nerves 3-12 NL ( 2-12 grossly intact.) Lab/DI/Studies Reviewed: Laboratory Results - last 24 hr 12/07/16 12/07/16 12/07/16 16:20 19:29 20:28 WBC RBC Hgb Hct MCV MCH MCHC RDW Plt Count MPV Neut % (Auto) Lymph % (Auto) [place] % (Auto) Eos % (Auto) Baso % (Auto) Absolute Neuts (auto) Absolute Lymphs (auto) Puncture Site Left radial pH 7.370 pCO2 40.0 pO2 65.0 L HCO3 23.1 Total CO2 24.3 Base Excess -2.0 Vent Mode Venti mask FiO2 % 55 Specimen Drawn By Kaytr Sodium Potassium Chloride Carbon Dioxide Anion Gap BUN Creatinine Estimated GFR (MDRD) Glucose POC Capillary Glucose 127 H 195 H Calculated Osmolality Calcium Magnesium 12/08/16 12/08/16 12/08/16 04:15 04:15 05:37 WBC 13.1 H RBC 3.68 L Hgb 11.1 L Hct 33.8 L MCV 92 MCH 30.2 MCHC 32.8 L RDW 14.2 Plt Count 353 MPV 8.5 Neut % (Auto) 85.1 H Lymph % (Auto) 5.6 L [place] % (Auto) 8.4 Eos % (Auto) 0.5 Baso % (Auto) 0.4 Absolute Neuts (auto) 11.14 H Absolute Lymphs (auto) 0.66 Puncture Site pH pCO2 pO2 HCO3 Total CO2 Base Excess Vent Mode FiO2 % Specimen Drawn By Sodium 133 L Potassium 3.6 Chloride 97 L Carbon Dioxide 28 Anion Gap 12 BUN 10 Creatinine 1.00 Estimated GFR (MDRD) > 60 Glucose 169 H POC Capillary Glucose 169 H Calculated Osmolality 259 L Calcium 8.0 L Magnesium 1.70 12/08/16 11:05 WBC RBC Hgb Hct MCV MCH MCHC RDW Plt Count MPV Neut % (Auto) Lymph % (Auto) [place] % (Auto) Eos % (Auto) Baso % (Auto) Absolute Neuts (auto) Absolute Lymphs (auto) Puncture Site pH pCO2 pO2 HCO3 Total CO2 Base Excess Vent Mode FiO2 % Specimen Drawn By Sodium Potassium Chloride Carbon Dioxide Anion Gap BUN Creatinine Estimated GFR (MDRD) Glucose POC Capillary Glucose 166 H Calculated Osmolality Calcium Magnesium - Assessment (1) Pulmonary edema Acute J81.1 - CHRONIC PULMONARY EDEMA Qualifiers: Chronicity: acute Qualified Code(s): J81.0 - Acute pulmonary edema Comment/Plan: Continue diuresis today hold IV fluids monitor pulmonary status and volume closely. 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 (3) Gangrene of foot Resolved I96 - GANGRENE, NOT ELSEWHERE CLASSIFIED Comment/Plan: For surgical assistance appreciated dressing clean and dry patient for wound VAC. (4) Sepsis Acute A41.9 - SEPSIS, UNSPECIFIED ORGANISM Comment/Plan: Sepsis has resolved cultures grew out strep Midas. Will discontinue current antibiotics and start ampicillin 2 g IV Q 6. (5) Type 2 diabetes mellitus with diabetic polyneuropathy Chronic E11.42 - TYPE 2 DIABETES MELLITUS WITH DIABETIC POLYNEUROPATHY Qualifiers: Diabetes mellitus intermediate accountant insulin use: without intermediate accountant use Qualified Code(s): E11.42 - Type 2 diabetes mellitus with diabetic polyneuropathy Comment/Plan: Restart oral diabetic medicines continue sliding scale insulin coverage. (6) Tobacco abuse Acute Z72.0 - TOBACCO USE Comment/Plan: Counseled to quit. I advised him this is the worse thing he can do. It is like pouring gasoline on a fire. Nicotine substitution will be offered. - Plan Continue IV antibiotics continue wound VAC and discharge planning. Patient will likely need skilled facility. Disposition Plan: Likely to skilled facility versus home Case Care Discussed with: Patient, Family, Nursing Staff, Occupational Therapy, Physical Therapy, Resource Management, Respiratory Therapy, Speech Therapy, Line Haul Driver Education/Counseling Given To: Patient Education/Counseling Given Regarding: Diagnosis, Treatment, Prognosis, Follow Up , Disposition Plan Total Time: 45 minutes Critical Care: No Couseling Time (>50% in counseling/coordination): No
[2016-12-08] MEDS: AMPICILLIN 2 GM in NS 100 ML IV SCH ×2 (17:30→23:49)
[2016-12-08] MEDS: MetFORMIN 500 MG IMMED RELEASE TAB PO SCH (17:31)
[2016-12-09] MEDS: Fluconazole 400 mg in NS 400 MG/200 ML RTU IV SCH (01:04)
[2016-12-09] MEDS: Albuterol/Ipratropium Neb 3 ML NEB NEB SCH ×4 (01:35→20:41)
[2016-12-09 06:18] LABS: AUTOMATED BASOPHIL 0.4 % (0-2); AUTOMATED EOSINOPHIL 0.9 % (0-5); AUTOMATED LYMPH 5.6 % (17-44); AUTOMATED MONOCYTE 8.1 % (3-10); MPV 8.5 fL (7.4-10.4)
[2016-12-09] MEDS: AMPICILLIN 2 GM in NS 100 ML IV SCH ×4 (06:23→23:24)
[2016-12-09] MEDS: REGULAR INSULIN 100 UNITS/ML - 3 ML VIAL SQ SCH ×4 (06:23→21:42)
[2016-12-09 06:43] LABS: BLOOD UREA NITROGEN 12 MG/DL (9-20); CALCIUM 8.3 MG/DL (8.4-10.2); CALCULATED OSMOLALITY 263 MOs/Kg (270-290); CHLORIDE 97 mEq/L (98-107); GLUCOSE 145 MG/DL (70-99); SODIUM LEVEL 135 mEq/L (137-146)
--- NOTE | 2016-12-09 08:07 | PCM.SURGRO ---
- Subjective Post Op Day: 3 Patient: Reports: No new complaints - Objective / Physical Exam Vital Signs: Temperature: 97.9 F (12/09/16 07:49) HR: 71 (12/09/16 07:49)RR: 20 (12/09/16 07: 49) BP: 156/73 (12/09/16 07:49)Pulse Ox: 94 (12/09/16 07:59) Respiratory: Diminished Cardiovascular: Regular rate and rhythm Extremities: Other (Right foot wound VAC dressing in place. Diminished erythema of right ankle area) Laboratory/Diagnostics Reviewed: Laboratory Results - last 24 hr 12/08/16 12/08/16 12/08/16 11:05 16:17 20:58 WBC RBC Hgb Hct MCV MCH MCHC RDW Plt Count MPV Neut % (Auto) Lymph % (Auto) [place] % (Auto) Eos % (Auto) Baso % (Auto) Absolute Neuts (auto) Absolute Lymphs (auto) Sodium Potassium Chloride Carbon Dioxide Anion Gap BUN Creatinine Estimated GFR (MDRD) Glucose POC Capillary Glucose 166 H 200 H 227 H Calculated Osmolality Calcium 12/09/16 12/09/16 12/09/16 05:00 05:00 05:50 WBC 13.5 H RBC 3.65 L Hgb 11.2 L Hct 33.7 L MCV 92 MCH 30.6 MCHC 33.1 RDW 14.3 Plt Count 370 MPV 8.5 Neut % (Auto) 85.0 H Lymph % (Auto) 5.6 L [place] % (Auto) 8.1 Eos % (Auto) 0.9 Baso % (Auto) 0.4 Absolute Neuts (auto) 11.48 H Absolute Lymphs (auto) 0.68 Sodium 135 L Potassium 4.0 Chloride 97 L Carbon Dioxide 29 Anion Gap 13 BUN 12 Creatinine 1.10 Estimated GFR (MDRD) > 60 Glucose 145 H POC Capillary Glucose 135 H Calculated Osmolality 263 L Calcium 8.3 L - Assessment and Plan (1) Gangrene of foot Resolved I96 - GANGRENE, NOT ELSEWHERE CLASSIFIED Present on Admission: Yes Comment/Plan: Postop day 3. Status post right 5th toe transmetatarsal amputation with open drainage of deep foot abscess due to a diabetic foot infection. Continue wound VAC. Antibiotic management was discussed with Dr. Spencer. Continue medical management of the patient's comorbid conditions.
--- NOTE | 2016-12-09 08:16 | DIRPT ---
CLINICAL DATA: Pulmonary edema EXAM: PORTABLE CHEST 1 VIEW COMPARISON: December 07, 2016 FINDINGS: There is extensive perihilar interstitial edema. There is cardiomegaly with pulmonary venous hypertension. There are small pleural effusions bilaterally. No airspace consolidation. No adenopathy apparent. IMPRESSION: Persistent congestive heart failure with marginally more perihilar edema compared to recent study. No airspace consolidation appreciable. Electronically Signed By: Godfrey Burleson III, M.D. On: 12/09/2016 08:14
[2016-12-09] MEDS: MetFORMIN 500 MG IMMED RELEASE TAB PO SCH ×2 (10:35→18:36)
[2016-12-09] MEDS: MAGNESIUM OXIDE 400 MG TAB PO SCH ×3 (10:42→18:36)
[2016-12-09] MEDS: POTASSIUM CHLORIDE 20 MEQ TAB PO SCH ×2 (10:42→18:36)
[2016-12-09] MEDS: NICOTINE 21 MG PATCH TOP SCH (10:42)
[2016-12-09] MEDS: LISINOPRIL 20 MG TAB PO SCH (10:42)
[2016-12-09] MEDS: METOPROLOL TARTRATE 25 MG TAB PO SCH ×2 (10:42→21:42)
[2016-12-09] MEDS: OXYCODONE HCL 5 MG TABLET PO PRN (10:43)
[2016-12-09] MEDS: FUROSEMIDE 40 MG/4 ML VIAL IV SCH ×2 (10:43→16:51)
[2016-12-09] MEDS: PROBIOTIC BLEND TAB PO SCH ×2 (12:10→18:36)
[2016-12-09] MEDS: VITAMINS,PRENATAL TABLET PO SCH (12:10)
[2016-12-09] MEDS: THIAMINE 100 MG TAB PO SCH (12:10)
--- NOTE | 2016-12-09 17:08 | GENMEDPROG ---
Subjective Note: Patient still having problems with volume. Echocardiogram is ordered. Notes Reviewed: Yes Events from last night noted and discussed with Clinical Staff Current Medication List: Reviewed Currently: Reports: SOB (Very mild), Diarrhea. Denies: Abdominal Pain, Fever/ Chills, Ambulating DVT Prophylaxis: Yes - Physical Examination Vital Signs and I&O: Last Vital Signs Temp 98.8 F 12/09/16 15:41 Pulse 79 12/09/16 15:41 Resp 20 12/09/16 15:41 BP 158/0 L 12/09/16 15:41 Pulse Ox 98 12/09/16 15:41 Oxygen Pulse Oxygen Saturation 98 O2 Device Nasal Cannula Oxygen Flow Rate 4 Fraction of Inspired Oxygen ( 45 FIO2) Intake & Output 12/06/16 12/07/16 12/08/16 12/09/16 23:59 23:59 23:59 23:59 Intake Total 6182 2585 2957 1283 Output Total 2485 1675 5175 1825 Balance 7010 025 -5316 -273 Patient's weight 80.995 kg 86.364 kg 86.239 kg 85.003 kg General: Alert, Oriented x3, No acute distress, Well appearing, Well nourished HEENT: Normal (Normocephalic, atraumatic;EOMI.Sclera white, Nares patent, without discharge or bleeding. No oropharyngeal lesions or erythema. Mucous membranes are dry.) Neck: Non-tender, Full range of motion, Normal Trachea alignment, Normal inspection (No cervical lymphadenopathy. No supraclavicular lymphadenopathy.), No Masses palpable, Supple Respiratory: Diminished. negative: Rales Cardiovascular: Regular rate and rhythm GI: Normal bowel sounds (normal active sounds), Soft (non-distended), Non tender , No hepatospenomegaly, No masses Extremities/Musculoskeletal: Other (Right foot wound VAC dressing in place. Diminished erythema of right ankle area) Skin: Warm,Dry and Intact, No rashes, No significant lesion Neurological: Strength at 5/5 X4 ext (Motor 5/5 throughout.), Normal tone, Cranial nerves 3-12 NL ( 2-12 grossly intact.) Lab/DI/Studies Reviewed: Laboratory Results - last 24 hr 12/08/16 12/09/16 12/09/16 20:58 05:00 05:00 WBC 13.5 H RBC 3.65 L Hgb 11.2 L Hct 33.7 L MCV 92 MCH 30.6 MCHC 33.1 RDW 14.3 Plt Count 370 MPV 8.5 Neut % (Auto) 85.0 H Lymph % (Auto) 5.6 L [place] % (Auto) 8.1 Eos % (Auto) 0.9 Baso % (Auto) 0.4 Absolute Neuts (auto) 11.48 H Absolute Lymphs (auto) 0.68 Sodium 135 L Potassium 4.0 Chloride 97 L Carbon Dioxide 29 Anion Gap 13 BUN 12 Creatinine 1.10 Estimated GFR (MDRD) > 60 Glucose 145 H POC Capillary Glucose 227 H Calculated Osmolality 263 L Calcium 8.3 L Uyc-R-Fofdxoxrjze Pept 12/09/16 12/09/16 12/09/16 05:00 05:50 10:59 WBC RBC Hgb Hct MCV MCH MCHC RDW Plt Count MPV Neut % (Auto) Lymph % (Auto) [place] % (Auto) Eos % (Auto) Baso % (Auto) Absolute Neuts (auto) Absolute Lymphs (auto) Sodium Potassium Chloride Carbon Dioxide Anion Gap BUN Creatinine Estimated GFR (MDRD) Glucose POC Capillary Glucose 135 H 152 H Calculated Osmolality Calcium Qtc-H-Ophqwynhrax Pept 13371 H 12/09/16 15:44 WBC RBC Hgb Hct MCV MCH MCHC RDW Plt Count MPV Neut % (Auto) Lymph % (Auto) [place] % (Auto) Eos % (Auto) Baso % (Auto) Absolute Neuts (auto) Absolute Lymphs (auto) Sodium Potassium Chloride Carbon Dioxide Anion Gap BUN Creatinine Estimated GFR (MDRD) Glucose POC Capillary Glucose 235 H Calculated Osmolality Calcium Zrl-C-Dpptqmoedbs Pept - Assessment (1) Pulmonary edema Acute J81.1 - CHRONIC PULMONARY EDEMA Qualifiers: Chronicity: acute Qualified Code(s): J81.0 - Acute pulmonary edema Comment/Plan: Continue diuresis today hold IV fluids monitor pulmonary status and volume closely. 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 Will switch to oral antibiotics at discharge (3) Gangrene of foot Acute I96 - GANGRENE, NOT ELSEWHERE CLASSIFIED Comment/Plan: For surgical assistance appreciated dressing clean and dry patient for wound VAC. (4) Sepsis Resolved A41.9 - SEPSIS, UNSPECIFIED ORGANISM Qualifiers: Sepsis type: S Comment/Plan: Sepsis has resolved cultures grew out strep Midas. Will discontinue current antibiotics and start ampicillin 2 g IV Q 6. (5) Type 2 diabetes mellitus with diabetic polyneuropathy Acute E11.42 - TYPE 2 DIABETES MELLITUS WITH DIABETIC POLYNEUROPATHY Qualifiers: Diabetes mellitus fci insulin use: without fci use Qualified Code(s): E11.42 - Type 2 diabetes mellitus with diabetic polyneuropathy Comment/Plan: Restart oral diabetic medicines continue sliding scale insulin coverage. (6) Tobacco abuse Acute Z72.0 - TOBACCO USE Comment/Plan: Counseled to quit. I advised him this is the worse thing he can do. It is like pouring gasoline on a fire. Nicotine substitution will be offered. - Plan Continue IV antibiotics continue wound VAC and discharge planning. Patient will likely need skilled facility. Disposition Plan: Likely to skilled facility versus home Case Care Discussed with: Patient Education/Counseling Given To: Patient Education/Counseling Given Regarding: Diagnosis, Treatment, Prognosis, Follow Up Total Time: 45 minutes Critical Care: No Couseling Time (>50% in counseling/coordination): No
[2016-12-10] MEDS: Albuterol/Ipratropium Neb 3 ML NEB NEB SCH ×4 (02:22→20:23)
[2016-12-10] MEDS: AMPICILLIN 2 GM in NS 100 ML IV SCH ×4 (05:19→23:48)
[2016-12-10 05:57] LABS: AUTOMATED BASOPHIL 0.3 % (0-2); AUTOMATED EOSINOPHIL 1.1 % (0-5); AUTOMATED LYMPH 5.6 % (17-44); AUTOMATED MONOCYTE 6.4 % (3-10); AUTOMATED NEUTROPHIL 86.6 % (45-76); MPV 8.2 fL (7.4-10.4)
[2016-12-10] MEDS: MetFORMIN 500 MG IMMED RELEASE TAB PO SCH ×2 (06:30→18:03)
[2016-12-10] MEDS: REGULAR INSULIN 100 UNITS/ML - 3 ML VIAL SQ SCH ×4 (06:31→21:49)
[2016-12-10 06:52] LABS: BLOOD UREA NITROGEN 15 MG/DL (9-20); CALCIUM 8.4 MG/DL (8.4-10.2); CALCULATED OSMOLALITY 268 MOs/Kg (270-290); CHLORIDE 97 mEq/L (98-107); GLUCOSE 156 MG/DL (70-99); SODIUM LEVEL 137 mEq/L (137-146)
--- NOTE | 2016-12-10 07:39 | PCM.SURGRO ---
- Subjective Post Op Day: 4 Patient: Reports: No new complaints, Other (Nursing called me last night to say that the right foot had erythema and was concerned that he may be developing more infection) - Objective / Physical Exam Vital Signs: Temperature: 97.8 F (12/10/16 04:00) HR: 81 (12/10/16 07:36)RR: 20 (12/10/16 04: 00) BP: 160/76 (12/10/16 04:00)Pulse Ox: 97 (12/10/16 04:00) Respiratory: Normal - CTA Cardiovascular: Regular rate and rhythm Extremities: Other (Right foot without erythema. There is mild ecchymosis. Wound VAC is in place) - Assessment and Plan (1) Gangrene of foot Acute I96 - GANGRENE, NOT ELSEWHERE CLASSIFIED Present on Admission: Yes Comment/Plan: Continue local therapy with wound VAC. Wound take weeks to heal if it ever does. May need to consider noninvasive vascular studies at some point to assess the adequacy of peripheral circulation for wound healing.
[2016-12-10] MEDS: MAGNESIUM OXIDE 400 MG TAB PO SCH ×3 (08:42→18:03)
[2016-12-10] MEDS: FUROSEMIDE 40 MG/4 ML VIAL IV SCH ×2 (08:43→18:06)
[2016-12-10] MEDS: POTASSIUM CHLORIDE 20 MEQ TAB PO SCH ×2 (08:43→18:04)
[2016-12-10] MEDS: METOPROLOL TARTRATE 25 MG TAB PO SCH ×2 (08:43→21:48)
[2016-12-10] MEDS: LISINOPRIL 20 MG TAB PO SCH (08:43)
[2016-12-10] MEDS: NICOTINE 21 MG PATCH TOP SCH (08:43)
[2016-12-10] MEDS: OXYCODONE HCL 5 MG TABLET PO PRN ×2 (08:44→21:48)
[2016-12-10] MEDS ORDERED: hydrALAZINE 20 MG/ML VIAL IV PRN (12:47)
[2016-12-10] MEDS: PROBIOTIC BLEND TAB PO SCH ×2 (13:34→18:04)
[2016-12-10] MEDS: THIAMINE 100 MG TAB PO SCH (13:34)
[2016-12-10] MEDS: VITAMINS,PRENATAL TABLET PO SCH (13:34)
--- NOTE | 2016-12-10 15:12 | CAPUECHO ---
INDICATION: SOB HEIGHT: 172.7 cm (5 ft 8.0 in) WEIGHT: 85.3 kg (188.0 lbs) BP: 122/60 BSA: 1.119378 m MEASUREMENTS 2D EF Biplane: 42.13 % LAESV MOD A4C: 87.2 ml LAESV MOD A2C: 69.9 ml LAESV Index (A-L): 46.13 ml/m M-MODE IVSd: 1.0 cm LVIDd: 5.9 cm LVPWd: 1.0 cm LVIDs: 4.3 cm EF(Teich): 53 % Ao Diam: 3.5 cm LA Diam: 4.0 cm IVSd: 0.9 cm LVIDd: 5.9 cm LVIDs: 4.3 cm EF(Teich): 51 % DOPPLER MV E Prabhu: 1.30 m/s MV A Prabhu: 0.65 m/s MV PHT: 46.56 ms MVA By PHT: 4.72 cm LVOT Vmax: 1.15 m/s AV Vmax: 1.25 m/s TR Vmax: 3.25 m/s TR maxP mmHg RVSP: 52.16 mmHg FINDINGS ------- Procedure:2D images, m-mode, color and spectral Doppler were obtained and reviewed. ECG rhythm:Sinus rhythm. Study quality:This was a technically adequate study. Left Ventricle:The left ventricular size is normal. Overall left ventricular systolic function is low-normal with, an EF between 50 - 55 %. Restrictive LV filling pattern, consistent with elevate d LA pressure. No regional wall motion abnormalities were noted. Right Ventricle:The right ventricle is normal in size and function. Left Atrium:The left atrium is mildly dilated. Right Atrium:The right atrium is normal in size and function. Aortic Valve:Aortic valve is trileaflet and is mildly thickened. There is mild aortic valve sclero sis. There is no evidence of aortic regurgitation. There is no evidence of aortic stenosis. Mitral Valve:Normal appearing mitral valve. Mild mitral regurgitation is present. Tricuspid Valve:The tricuspid valve appears structurally normal. Bnrt-lh-rxsmactp tricuspid regurg itation present. There is mild pulmonary hypertension. The right ventricular systolic pressure, as measured by Doppler, is 52 mmhg. Pulmonic Valve:The pulmonic valve is normal. Trace/mild (physiologic) pulmonic regurgitation. Aorta:The aortic root, ascending aorta and aortic arch appear normal. IVC:Normal inferior vena cava with normal inspiratory collapse. Pulmonary Veins:The flow patterns, measured by Doppler, indicate systolic blunting. Pericardium:There is a trivial pericardial effusion present. bilateral pleural effusion is seen CONCLUSIONS 1. Overall left ventricular systolic function is low-normal with, an EF between 50 - 55 %. 2. Restrictive LV filling pattern, consistent with elevated LA pressure. 3. Mild mitral regurgitation is present. 4. There is mild pulmonary hypertension. 5. bilateral pleural effusion is seen Electronically Signed By: Remberto Newberry MD, FACC Electronically Signed On: 15:12:18
--- NOTE | 2016-12-10 16:40 | GENMEDPROG ---
Subjective Note: Patient still with very high elevated BNP. Echocardiogram shows low normal EF with restrictive left ventricular filling pattern elevated left atrial pressures. He also has mild pulmonary hypertension and pleural effusions. Notes Reviewed: Yes Events from last night noted and discussed with Clinical Staff Current Medication List: Reviewed Currently: Reports: SOB (Very mild), Diarrhea. Denies: Abdominal Pain, Fever/ Chills, Ambulating DVT Prophylaxis: Yes - Physical Examination Vital Signs and I&O: Last Vital Signs Temp 97.5 F 12/10/16 16:00 Pulse 80 12/10/16 16:00 Resp 20 12/10/16 16:00 BP 152/67 12/10/16 16:00 Pulse Ox 98 12/10/16 16:00 Oxygen Pulse Oxygen Saturation 98 O2 Device Nasal Cannula Oxygen Flow Rate 3 Fraction of Inspired Oxygen ( 45 FIO2) Intake & Output 12/07/16 12/08/16 12/09/16 12/10/16 23:59 23:59 23:59 23:59 Intake Total 2585 2957 2399 591 Output Total 1505 3365 2625 2125 Balance 731 -3915 -222 -3158 Patient's weight 86.364 kg 86.239 kg 85.003 kg 85.389 kg General: Alert, Oriented x3, No acute distress, Well appearing, Well nourished HEENT: Normal (Normocephalic, atraumatic;EOMI.Sclera white, Nares patent, without discharge or bleeding. No oropharyngeal lesions or erythema. Mucous membranes are dry.) Neck: Non-tender, Full range of motion, Normal Trachea alignment, Normal inspection (No cervical lymphadenopathy. No supraclavicular lymphadenopathy.), No Masses palpable, Supple Respiratory: Diminished. negative: Rales Cardiovascular: Regular rate and rhythm GI: Normal bowel sounds (normal active sounds), Soft (non-distended), Non tender , No hepatospenomegaly, No masses Extremities/Musculoskeletal: Other (Right foot wound VAC dressing in place. Diminished erythema of right ankle area) Skin: Warm,Dry and Intact, No rashes, No significant lesion Neurological: Strength at 5/5 X4 ext (Motor 5/5 throughout.), Normal tone, Cranial nerves 3-12 NL ( 2-12 grossly intact.) Lab/DI/Studies Reviewed: Abnormal Lab Results 12/09/16 12/10/16 12/10/16 21:24 04:50 04:50 WBC 14.3 H RBC 3.71 L Hgb 11.4 L Hct 34.1 L RDW 14.9 H Plt Count 462 H Neut % (Auto) 86.6 H Lymph % (Auto) 5.6 L Absolute Neuts (auto) 12.30 H Chloride 97 L Glucose 156 H POC Capillary Glucose 219 H Calculated Osmolality 268 L Wjm-O-Tbawgronbxo Pept 12/10/16 12/10/16 12/10/16 04:50 05:33 11:51 WBC RBC Hgb Hct RDW Plt Count Neut % (Auto) Lymph % (Auto) Absolute Neuts (auto) Chloride Glucose POC Capillary Glucose 149 H 153 H Calculated Osmolality Ixw-S-Nsenyyqkyet Pept 52360 H 12/10/16 12/10/16 13:25 16:17 WBC RBC Hgb Hct RDW Plt Count Neut % (Auto) Lymph % (Auto) Absolute Neuts (auto) Chloride Glucose POC Capillary Glucose 154 H 187 H Calculated Osmolality Zbf-F-Gxbxceckari Pept Echocardiogram: CONCLUSIONS 1. Overall left ventricular systolic function is low-normal with, an EF between 50 - 55 %. 2. Restrictive LV filling pattern, consistent with elevated LA pressure. 3. Mild mitral regurgitation is present. 4. There is mild pulmonary hypertension. 5. bilateral pleural effusion is seen Electronically Signed By: Remberto Newberry MD, [facility] Electronically Signed On: 15:12:18 Copy to: Yazan Keane MD~ 12/10/16 3058 - Assessment (1) Pulmonary edema Acute J81.1 - CHRONIC PULMONARY EDEMA Qualifiers: Chronicity: acute Qualified Code(s): J81.0 - Acute pulmonary edema Comment/Plan: Increase Lasix to 80 twice daily. 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 Will switch to oral antibiotics at discharge (3) Gangrene of foot Acute I96 - GANGRENE, NOT ELSEWHERE CLASSIFIED Comment/Plan: Patient status post amputation. (4) Type 2 diabetes mellitus with diabetic polyneuropathy Acute E11.42 - TYPE 2 DIABETES MELLITUS WITH DIABETIC POLYNEUROPATHY Qualifiers: Diabetes mellitus termite control servicer insulin use: without retirement use Qualified Code(s): E11.42 - Type 2 diabetes mellitus with diabetic polyneuropathy Comment/Plan: Restart oral diabetic medicines continue sliding scale insulin coverage. (5) Tobacco abuse Acute Z72.0 - TOBACCO USE Comment/Plan: Continue discussion regarding smoking cessation. (6) Sepsis Inactive A41.9 - SEPSIS, UNSPECIFIED ORGANISM Qualifiers: Sepsis type: S Comment/Plan: Sepsis has resolved cultures grew out strep Midas. Will discontinue current antibiotics and start ampicillin 2 g IV Q 6. - Plan Continue IV antibiotics continue wound VAC and discharge planning. Patient will likely need skilled facility. Disposition Plan: Likely to skilled facility versus home Case Care Discussed with: Patient Education/Counseling Given To: Patient Education/Counseling Given Regarding: Diagnosis, Treatment, Prognosis, Follow Up , Disposition Plan Total Time: 45 minutes Critical Care: No Couseling Time (>50% in counseling/coordination): No
[2016-12-11] MEDS: Albuterol/Ipratropium Neb 3 ML NEB NEB SCH ×3 (02:27→13:56)
[2016-12-11 04:28] VITALS: BMI 28.3
[2016-12-11 05:02] LABS: AUTOMATED BASOPHIL 0.8 % (0-2); AUTOMATED EOSINOPHIL 2.6 % (0-5); AUTOMATED LYMPH 9.6 % (17-44); AUTOMATED MONOCYTE 7.8 % (3-10); AUTOMATED NEUTROPHIL 79.2 % (45-76)
[2016-12-11 05:14] LABS: BLOOD UREA NITROGEN 17 MG/DL (9-20); CALCIUM 8.4 MG/DL (8.4-10.2); CALCULATED OSMOLALITY 268 MOs/Kg (270-290); CHLORIDE 96 mEq/L (98-107); GLUCOSE 128 MG/DL (70-99); SODIUM LEVEL 137 mEq/L (137-146)
[2016-12-11] MEDS: REGULAR INSULIN 100 UNITS/ML - 3 ML VIAL SQ SCH ×2 (06:11→13:15)
[2016-12-11] MEDS: AMPICILLIN 2 GM in NS 100 ML IV SCH ×2 (06:11→13:16)
[2016-12-11] MEDS: MetFORMIN 500 MG IMMED RELEASE TAB PO SCH (06:13)
[2016-12-11] MEDS ORDERED: FUROSEMIDE 40 MG/4 ML VIAL IV SCH (08:00)
[2016-12-11] MEDS: OXYCODONE HCL 5 MG TABLET PO PRN (08:16)
[2016-12-11] MEDS: METOPROLOL TARTRATE 25 MG TAB PO SCH (08:16)
[2016-12-11] MEDS: NICOTINE 21 MG PATCH TOP SCH (08:16)
[2016-12-11] MEDS: LISINOPRIL 20 MG TAB PO SCH (08:17)
[2016-12-11] MEDS: POTASSIUM CHLORIDE 20 MEQ TAB PO SCH (08:17)
[2016-12-11] MEDS: MAGNESIUM OXIDE 400 MG TAB PO SCH ×2 (08:17→13:18)
[2016-12-11] MEDS ORDERED: METOPROLOL TARTRATE 25 MG TAB PO SCH (13:14)
[2016-12-11] MEDS: PROBIOTIC BLEND TAB PO SCH (13:17)
[2016-12-11] MEDS: VITAMINS,PRENATAL TABLET PO SCH (13:18)
[2016-12-11] MEDS: THIAMINE 100 MG TAB PO SCH (13:18)
--- NOTE | 2016-12-11 13:21 | PCM.SURGRO ---
- Subjective Post Op Day: 5 Patient: Reports: No new complaints - Objective / Physical Exam Vital Signs: Temperature: 97.8 F (12/11/16 12:00) HR: 61 (12/11/16 12:00)RR: 18 (12/11/16 12: 00) BP: 165/70 (12/11/16 12:00)Pulse Ox: 91 (12/11/16 12:00) Respiratory: Normal - CTA Cardiovascular: Regular rate and rhythm Extremities: Other (Right foot wound VAC dressing intact. No erythema of foot or ankle) Laboratory/Diagnostics Reviewed: Laboratory Results - last 24 hr 12/10/16 12/10/16 12/10/16 13:25 16:17 19:40 WBC RBC Hgb Hct MCV MCH MCHC RDW Plt Count MPV Neut % (Auto) Lymph % (Auto) [place] % (Auto) Eos % (Auto) Baso % (Auto) Absolute Neuts (auto) Absolute Lymphs (auto) Sodium Potassium Chloride Carbon Dioxide Anion Gap BUN Creatinine Estimated GFR (MDRD) Glucose POC Capillary Glucose 154 H 187 H 218 H Calculated Osmolality Calcium Vqc-R-Tewaleezxcj Pept 12/11/16 12/11/16 12/11/16 04:15 04:15 04:15 WBC 10.8 RBC 3.73 L Hgb 11.6 L Hct 34.4 L MCV 93 MCH 31.0 MCHC 33.6 RDW 14.8 H Plt Count 465 H MPV 8.0 Neut % (Auto) 79.2 H Lymph % (Auto) 9.6 L [place] % (Auto) 7.8 Eos % (Auto) 2.6 Baso % (Auto) 0.8 Absolute Neuts (auto) 8.53 H Absolute Lymphs (auto) 0.97 Sodium 137 Potassium 4.0 Chloride 96 L Carbon Dioxide 36 H Anion Gap 9 BUN 17 Creatinine 1.00 Estimated GFR (MDRD) > 60 Glucose 128 H POC Capillary Glucose Calculated Osmolality 268 L Calcium 8.4 Vbl-R-Mtxdloftzah Pept 85535 H 12/11/16 12/11/16 05:01 11:19 WBC RBC Hgb Hct MCV MCH MCHC RDW Plt Count MPV Neut % (Auto) Lymph % (Auto) [place] % (Auto) Eos % (Auto) Baso % (Auto) Absolute Neuts (auto) Absolute Lymphs (auto) Sodium Potassium Chloride Carbon Dioxide Anion Gap BUN Creatinine Estimated GFR (MDRD) Glucose POC Capillary Glucose 130 H 159 H Calculated Osmolality Calcium Ofy-E-Yuucegfozgb Pept - Assessment and Plan (1) Gangrene of foot Resolved I96 - GANGRENE, NOT ELSEWHERE CLASSIFIED Present on Admission: Yes Comment/Plan: Postop day 5. Wound VAC dressing is in place. Continue medical management of his comorbid conditions. I would highly suggest [facility] facility/ rehabilitation place for chronic wound care. My concern is if he does go home he would potentially be a quick readmission due to failure of the wound VAC therapy.
--- NOTE | 2016-12-11 13:24 | PCM.DCS92 ---
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 Will switch to oral antibiotics at discharge (3) Gangrene of foot Resolved I96 - GANGRENE, NOT ELSEWHERE CLASSIFIED Present on Admission: Yes Comment: Patient status post amputation. (4) Type 2 diabetes mellitus with diabetic polyneuropathy Acute E11.42 - TYPE 2 DIABETES MELLITUS WITH DIABETIC POLYNEUROPATHY Present on Admission: Yes without senior care use E11.42 - Type 2 diabetes mellitus with diabetic polyneuropathy Comment: Restart oral diabetic medicines continue sliding scale insulin coverage. (5) Tobacco abuse Acute Z72.0 - TOBACCO USE Present on Admission: Yes Comment: Continue discussion regarding smoking cessation. Discharge Disposition: [facility] Discharge Condition: Fair Cognitive Discharge Status: Unimpaired Fuctional Discharge Status: Wheelchair Assistance Forms: Patient Discharge Instructions, ED Discharge Instructions Physician Follow up/Referrals: Yazan Keane MD [Primary Care Provider] - One Week Home Medications / New Prescriptions: New Ampicillin Trihydrate 1,000 mg PO Q6 #40 capsule Probiotic Blend [Deepali Q] 1 tab PO BIDLS #60 tablet POTASSIUM CHLORIDE Tablet [K-DUR 20 mEq Tablet*] 20 meq PO BIDWM #60 tab.er.prt Furosemide [Lasix] 40 mg PO 0800,1600 #60 tablet Atorvastatin Calcium [Lipitor] 10 mg PO HS #30 tablet Metoprolol Tartrate [Lopressor] 50 mg PO BID #60 tablet Magnesium Oxide [Mag-Ox] 400 mg PO TIDWM #100 tablet Ibuprofen Tablet [Motrin] 600 mg PO Q8H PRN #30 tablet PRN Reason: Mild Pain Or Fever Above 100.4 Nicotine [Nicoderm] 21 mg TOP Q24H #30 pat Oxycodone Immediate Release [Oxycodone Immediate Release (OxyIR)] 5 mg PO Q4H PRN #30 tablet PRN Reason: Moderate To Severe Pain Vitamins, [ Vitamin] 1 tab PO DAILY@1200 #100 tablet Thiamine [Thiamine, Vitamin B-1] 100 mg PO DAILY@1200 #100 tablet Lisinopril [Zestril] 20 mg PO DAILY #30 tablet Continue Metformin HCl 500 mg PO BID Discontinued Metoprolol Tartrate 25 mg PO BID Lisinopril [Prinivil] 20 mg PO DAILY Celecoxib [Celebrex] 200 mg PO DAILY Sulfamethoxazole/Trimethoprim [Bactrim Ds Tablet] 1 tab PO .BID X 5D Ciprofloxacin HCl 500 mg PO .BID X 7D Oxycodone HCl/Acetaminophen [Percocet 7.5-325 mg Tablet] 1 tab PO DAILY PRN PRN Reason: Pain Discharge Home Medication List Metformin HCl 500 mg PO BID 12/05/16 [History Confirmed 12/05/16] Ampicillin Trihydrate 1,000 mg PO Q6 #40 capsule 12/11/16 [Rx] Atorvastatin Calcium [Lipitor] 10 mg PO HS #30 tablet 12/11/16 [Rx] Furosemide [Lasix] 40 mg PO 0800,1600 #60 tablet 12/11/16 [Rx] Ibuprofen Tablet [Motrin] 600 mg PO Q8H PRN #30 tablet 12/11/16 [Rx] Lisinopril [Zestril] 20 mg PO DAILY #30 tablet 12/11/16 [Rx] Magnesium Oxide [Mag-Ox] 400 mg PO TIDWM #100 tablet 12/11/16 [Rx] Metoprolol Tartrate [Lopressor] 50 mg PO BID #60 tablet 12/11/16 [Rx] Nicotine [Nicoderm] 21 mg TOP Q24H #30 pat 12/11/16 [Rx] Oxycodone Immediate Release [Oxycodone Immediate Release (OxyIR)] 5 mg PO Q4H PRN #30 tablet 12/11/16 [Rx] POTASSIUM CHLORIDE Tablet [K-DUR 20 mEq Tablet*] 20 meq PO BIDWM #60 tab.er.prt 12/11/16 [Rx] Probiotic Blend [Deepali Q] 1 tab PO BIDLS #60 tablet 12/11/16 [Rx] Thiamine [Thiamine, Vitamin B-1] 100 mg PO DAILY@1200 #100 tablet 12/11/16 [Rx] Vitamins, [ Vitamin] 1 tab PO DAILY@1200 #100 tablet 12/11/16 [ Rx] New Discharge Medications (Rx) Ampicillin Trihydrate 1,000 mg PO Q6 #40 capsule 12/11/16 [Rx] Atorvastatin Calcium [Lipitor] 10 mg PO HS #30 tablet 12/11/16 [Rx] Furosemide [Lasix] 40 mg PO 0800,1600 #60 tablet 12/11/16 [Rx] Ibuprofen Tablet [Motrin] 600 mg PO Q8H PRN #30 tablet 12/11/16 [Rx] Lisinopril [Zestril] 20 mg PO DAILY #30 tablet 12/11/16 [Rx] Magnesium Oxide [Mag-Ox] 400 mg PO TIDWM #100 tablet 12/11/16 [Rx] Metoprolol Tartrate [Lopressor] 50 mg PO BID #60 tablet 12/11/16 [Rx] Nicotine [Nicoderm] 21 mg TOP Q24H #30 pat 12/11/16 [Rx] Oxycodone Immediate Release [Oxycodone Immediate Release (OxyIR)] 5 mg PO Q4H PRN #30 tablet 12/11/16 [Rx] POTASSIUM CHLORIDE Tablet [K-DUR 20 mEq Tablet*] 20 meq PO BIDWM #60 tab.er.prt 12/11/16 [Rx] Probiotic Blend [Deepali Q] 1 tab PO BIDLS #60 tablet 12/11/16 [Rx] Thiamine [Thiamine, Vitamin B-1] 100 mg PO DAILY@1200 #100 tablet 12/11/16 [Rx] Vitamins, [ Vitamin] 1 tab PO DAILY@1200 #100 tablet 12/11/16 [ Rx] O2 Device: Nasal Cannula Oxygen Flow Rate: 2 (RA O2 sat 91% at rest on DC day) Oxygen to be used after Discharge: While Ambulating Diet at Discharge: As Tolerated, Cardiac, Heart Healthy, Low Salt, Fluid Restricted (1200ml/24 hours) Activity: No Restrictions Call Office For: Worsening Symptoms, Fever over 100.5, Pain Uncontrolled By Meds Discontinue use of:: All Types of Tobacco (smoking cessation counseling for >11 min total throughout hospital stay) - DC Summary Notes Hospital Course Note:: Discharge summary on patient named SILVIO DIOP admitted to [facility] on 12/05/16 by Khurram Jackson MD. Date of discharge is []. Unfortunate 60-year-old gentleman presented to the emergency department with gangrene of the [id number] toe. He went to the operating room had right 5th toe amputation and transmetatarsal removal. With wide drainage of abscess.. He now requires a wound VAC. He is a heavy smoker he had some congestive heart failure this hospitalization but that has significantly improved with Lasix, Jovan inhibitors, beta-blockers and conservative treatment. Echocardiogram showed ejection fraction of greater than 50%. At this point patient is reached maximum benefit of hospitalization please note that he is a heavy smoker and he will discharge on 2 L of oxygen with activity. He may progress to requiring continuous oxygen. He was counseled regarding smoking cessation. Patient also has severe CHRONIC OBSTRUCTIVE PULMONARY DISEASE and will be using nebulizers at the nursing facility. Total Time: 45 min Heart Failure DC - Education Provide the following patient education: Yes Cardiac Prudent Diet (Restricted Salt Intake), Yes Tobacco Cessation(If any use in the past 30 days), Yes Heart Failure(Continuity Care) - Discharge Medications Beta Bonnie Ordered: New Prescription on Chart Ejection Fraction (% or Description): 50-55% JOVAN/ARB Ordered (Patients with EF<40% use JOVAN INHIBITORS &/or ARBs): New Prescription on Chart - Physical Exam Vital Signs: Last Vital Signs Temp 97.8 F 12/11/16 12:00 Pulse 61 12/11/16 12:00 Resp 18 12/11/16 12:00 BP 165/70 12/11/16 12:00 Pulse Ox 91 12/11/16 12:00 Oxygen Pulse Oxygen Saturation 91 O2 Device Nasal Cannula Oxygen Flow Rate 2 Fraction of Inspired Oxygen ( 45 FIO2) Constitutional: Alert (Awake), No apparent distress Oriented to: Time, Person, Place - HEENT Head: Normal ( normocephalic) Eye: Normal (PERRL, EOMI, Sclera white) Oropharynx: Normal (Pharynx:Moist without exudate,Gums-no swelling) ENT EAC: Normal TMJ: Normal Nose: No Symptoms Reported (septum midline) - Respiratory/Cardiovascular Respiratory: Normal - CTA - GI Auscultation: Normal (NABS) Palpation: Normal (Soft,No rebound or guarding, non distended) Tenderness: Non tender Sanders's Sign: Negative - Musculoskeletal Back: Normal Extremities: Normal - Integumentary Lymphatics: Normal - Neurologic Memory Impaired: Normal Cerebellar: Normal Mood Description: Normal Perception: Normal - Other Exam Other Exam Findings: Laboratory Results - last 24 hr 12/10/16 12/10/16 12/10/16 13:25 16:17 19:40 WBC RBC Hgb Hct MCV MCH MCHC RDW Plt Count MPV Neut % (Auto) Lymph % (Auto) [place] % (Auto) Eos % (Auto) Baso % (Auto) Absolute Neuts (auto) Absolute Lymphs (auto) Sodium Potassium Chloride Carbon Dioxide Anion Gap BUN Creatinine Estimated GFR (MDRD) Glucose POC Capillary Glucose 154 H 187 H 218 H Calculated Osmolality Calcium Ejo-C-Wlutjrdmchq Pept 12/11/16 12/11/16 12/11/16 04:15 04:15 04:15 WBC 10.8 RBC 3.73 L Hgb 11.6 L Hct 34.4 L MCV 93 MCH 31.0 MCHC 33.6 RDW 14.8 H Plt Count 465 H MPV 8.0 Neut % (Auto) 79.2 H Lymph % (Auto) 9.6 L [place] % (Auto) 7.8 Eos % (Auto) 2.6 Baso % (Auto) 0.8 Absolute Neuts (auto) 8.53 H Absolute Lymphs (auto) 0.97 Sodium 137 Potassium 4.0 Chloride 96 L Carbon Dioxide 36 H Anion Gap 9 BUN 17 Creatinine 1.00 Estimated GFR (MDRD) > 60 Glucose 128 H POC Capillary Glucose Calculated Osmolality 268 L Calcium 8.4 Taf-V-Zholqjdbdfe Pept 91002 H 12/11/16 12/11/16 05:01 11:19 WBC RBC Hgb Hct MCV MCH MCHC RDW Plt Count MPV Neut % (Auto) Lymph % (Auto) [place] % (Auto) Eos % (Auto) Baso % (Auto) Absolute Neuts (auto) Absolute Lymphs (auto) Sodium Potassium Chloride Carbon Dioxide Anion Gap BUN Creatinine Estimated GFR (MDRD) Glucose POC Capillary Glucose 130 H 159 H Calculated Osmolality Calcium Dgj-Q-Vanoaquryvu Pept Echocardiogram: CONCLUSIONS 1. Overall left ventricular systolic function is low-normal with, an EF between 50 - 55 %. 2. Restrictive LV filling pattern, consistent with elevated LA pressure. 3. Mild mitral regurgitation is present. 4. There is mild pulmonary hypertension. 5. bilateral pleural effusion is seen Electronically Signed By: Remberto Newberry MD, FACC Electronically Signed On: 15:12:18 EXAM: PORTABLE CHEST 1 VIEW COMPARISON: December 07, 2016 FINDINGS: There is extensive perihilar interstitial edema. There is cardiomegaly with pulmonary venous hypertension. There are small pleural effusions bilaterally. No airspace consolidation. No adenopathy apparent. IMPRESSION: Persistent congestive heart failure with marginally more perihilar edema compared to recent study. No airspace consolidation appreciable. Electronically Signed By: Godfrey Burleson III, M.D. On: 12/09/2016 08:14
[2016-12-11 15:38] VITALS: BP 169/76; TEMP 98.6
[2016-12-11 16:00] VITALS: PULSE 72
[2016-12-11] MEDS ORDERED: FUROSEMIDE 40 MG TAB PO SCH (16:00)
[2016-12-11] MEDS ORDERED: ATORVASTATIN 10 MG TAB PO SCH (21:00)
== END 2016-12-11 17:00 | DRG 853 ==
LOC: ED 16:51 → PCU 20:46
PROVIDERS: ADMIT Internal Medicine; ATTEND Hospitalist
PROC: 0Y6M0ZF Detachment at Right Foot, Partial 5th Ray, Open Approach (ICD-10-PCS; principal; 2016-12-06 08:37)
PROC: 5A09357 Assistance with Respiratory Ventilation, Less than 24 Consecutive Hours, Continuous Positive Airway Pressure (ICD-10-PCS; 2016-12-07)
PROC: 039C3ZZ Drainage of Left Radial Artery, Percutaneous Approach (ICD-10-PCS; 2016-12-07)
DX: A41.9 Sepsis, unspecified organism (principal); J96.01 Acute respiratory failure with hypoxia; E11.52 Type 2 diabetes mellitus with diabetic peripheral angiopathy with gangrene; F17.210 Nicotine dependence, cigarettes, uncomplicated; B37.41 Candidal cystitis and urethritis; I10 Essential (primary) hypertension; J81.0 Acute pulmonary edema; L03.115 Cellulitis of right lower limb; F10.239 Alcohol dependence with withdrawal, unspecified; Z71.6 Tobacco abuse counseling; E11.65 Type 2 diabetes mellitus with hyperglycemia; Z79.84 Long term (current) use of oral hypoglycemic drugs; J44.9 Chronic obstructive pulmonary disease, unspecified; Z86.73 Personal history of transient ischemic attack (TIA), and cerebral infarction without residual deficits; Z87.828 Personal history of other (healed) physical injury and trauma; E87.6 Hypokalemia
CPT/HCPCS: 36415; 36600; 71010; 80048; 80053; 80202; 80307; 81001; 82043; 82550; 82803; 82962; 83036; 83605; 83630; 83735; 83880; 84100; 84132; 84484; 85025; 85027; 87040; 87045; 87046; 87070; 87075; 87076; 87077; 87086; 87181; 87186; 87205; 87427; 87449; 87493; 90732; 93005; 93306; 94640; 94660; 96361; 96372; 96375; 97162; 98960; 99284; 99406; A9153; A9698; J0290; J0360; J1450; J1940; J2270; J2405; J2543; J2765; J3010; J3370; J3411; J3475; J3480; J3490; J7030; J7060; J7620

== ENCOUNTER 2016-12-12 00:19 | Inpatient (IN) | payer MEDICARE ==
[2016-12-12 00:34] VITALS: BMI 25.0
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
[2016-12-12 01:11] LABS: AUTOMATED BASOPHIL 0.9 % (0-2); AUTOMATED EOSINOPHIL 2.1 % (0-5); AUTOMATED LYMPH 7.3 % (17-44); AUTOMATED MONOCYTE 6.6 % (3-10); AUTOMATED NEUTROPHIL 83.1 % (45-76); MPV 7.6 fL (7.4-10.4)
[2016-12-12 01:17] LABS: BLOOD UREA NITROGEN 17 MG/DL (9-20); CALC CORRECTED 9.8 MG/DL (8.4-10.2); CALCULATED OSMOLALITY 264 MOs/Kg (270-290); CHLORIDE 93 mEq/L (98-107); GLUCOSE 199 MG/DL (70-99); SODIUM LEVEL 133 mEq/L (137-146); TOTAL PROTEIN 6.8 G/DL (6.3-8.2)
[2016-12-12] MEDS ORDERED: ACETAMINOPHEN 325 MG/TAB TABLET PO PRN ×2 (01:29→13:31)
[2016-12-12] MEDS ORDERED: GUAIFENESIN 200 MG/10 ML UDC PO PRN ×2 (01:29→13:31)
[2016-12-12] MEDS ORDERED: MAGNESIUM HYDROXIDE 30 ML BOTTLE PO PRN ×2 (01:29→13:31)
[2016-12-12] MEDS ORDERED: Docusate Sodium 100 MG CAP PO PRN (01:29)
[2016-12-12] MEDS ORDERED: ONDANSETRON HCL 4 MG ODT TAB PO PRN (01:29)
[2016-12-12] MEDS ORDERED: IBUPROFEN 600 MG TAB PO PRN (01:30)
[2016-12-12] MEDS ORDERED: Albuterol/Ipratropium Neb 3 ML NEB NEB PRN ×2 (01:30→13:31)
[2016-12-12] MEDS ORDERED: ALBUTEROL 0.083% 3 ML NEB NEB PRN (01:30)
[2016-12-12] MEDS ORDERED: NICOTINE 21 MG PATCH TOP SCH (02:00)
[2016-12-12] MEDS ORDERED: AMPICILLIN 1000 MG PO SCH (06:00)
[2016-12-12] MEDS: AMPICILLIN 250 MG CAP PO SCH ×2 (06:14→11:28)
[2016-12-12] MEDS: MetFORMIN 500 MG IMMED RELEASE TAB PO SCH ×2 (06:15→18:09)
[2016-12-12] MEDS: MAGNESIUM OXIDE 400 MG TAB PO SCH ×3 (07:35→18:09)
[2016-12-12] MEDS: LISINOPRIL 20 MG TAB PO SCH (07:35)
[2016-12-12] MEDS: FUROSEMIDE 40 MG TAB PO SCH ×2 (07:35→16:07)
[2016-12-12] MEDS: METOPROLOL TARTRATE 50 MG TAB PO SCH ×2 (07:35→21:29)
[2016-12-12] MEDS: POTASSIUM CHLORIDE 20 MEQ TAB PO SCH ×2 (07:35→18:09)
[2016-12-12] MEDS: NICOTINE 21 MG PATCH TOP SCH ×2 (07:36→14:58)
[2016-12-12] MEDS: OXYCODONE HCL 5 MG TABLET PO PRN ×3 (09:36→19:16)
[2016-12-12] MEDS: THIAMINE 100 MG TAB PO SCH (11:28)
[2016-12-12] MEDS: PROBIOTIC BLEND TAB PO SCH ×2 (11:28→18:09)
--- NOTE | 2016-12-12 11:38 | PCM.SURGCO ---
Consultation Date: 12/12/16 Requesting Physician: Silvestre Us Rivet Passer: Efrain Feng Consult Reason: Wound - History of Present Illness The patient is a 60 year old male that was discharge from [facility] on after hospitalization for gangrene of the fifth digit of the right foot with transmetatarsal amputation of the right foot by Dr. Lawrence on 12/06/16. The patient was discharged to [facility] on 12/11/16. He returned to the emergency department at [facility] stating that he did not like [facility] and wanted to go to another emergency department. He was noted to have a wound VAC dressing in place with no pump attached and red streaking up his right leg. He denies increased pain at the right foot. Chief Complaint: Doesn't like [facility] - Past Medical and Surgical History Systemic History: Reports: Diabetes Psychological History: Denies: Depression Past Surgical History: Reports: Other (Tranmetatarsal amputation of the fifth digit of the right foot on 12/06/16) Allergies No Known Allergies Allergy (Verified 12/12/16 00:34) Home Medications Metformin HCl 500 mg PO BID 12/05/16 Albuterol Sulfate Nebs [Proventil, Ventolin] 3 ml NEB Q2H PRN #100 nebu Albuterol/Ipratropium Neb [Duoneb] 3 ml NEB Q6H PRN #1 box 12/11/16 Ampicillin Trihydrate 1,000 mg PO Q6 #40 capsule 12/11/16 Atorvastatin Calcium [Lipitor] 10 mg PO HS #30 tablet 12/11/16 Furosemide [Lasix] 40 mg PO 0800,1600 #60 tablet 12/11/16 Ibuprofen Tablet [Motrin] 600 mg PO Q8H PRN #30 tablet 12/11/16 Lisinopril [Zestril] 20 mg PO DAILY #30 tablet 12/11/16 Magnesium Oxide [Mag-Ox] 400 mg PO TIDWM #100 tablet 12/11/16 Metoprolol Tartrate [Lopressor] 50 mg PO BID #60 tablet 12/11/16 Nicotine [Nicoderm] 21 mg TOP Q24H #30 pat 12/11/16 Oxycodone Immediate Release [Oxycodone Immediate Release (OxyIR)] 5 mg PO Q4H PRN #30 tablet 12/11/16 POTASSIUM CHLORIDE Tablet [K-DUR 20 mEq Tablet*] 20 meq PO BIDWM #60 tab.er.prt 12/11/16 Probiotic Blend [Deepali Q] 1 tab PO BIDLS #60 tablet 12/11/16 Thiamine [Thiamine, Vitamin B-1] 100 mg PO DAILY@1200 #100 tablet 12/11/16 Vitamins, [ Vitamin] 1 tab PO DAILY@1200 #100 tablet 12/11/16 - Social History Travel Outside of [place] in the Last 3 Months?: No Lives: in Snf/SNF Smoking Status: Heavy tobacco smoker (5 or more cigarettes/day or daily pipe/ cigar) - Family History Reports: Hypertension (Mother), Diabetes (Mother), Stroke (Father) - Review of Systems Yes All systems reviewed and were negative except as marked (twelve systems reviewed with the patient.) - Physical Exam Vital Signs: Initial Vitals Temperature 98.3 F 12/12/16 00:26 Pulse Rate 70 12/12/16 00:26 Respiratory Rate 20 12/12/16 00:26 Blood Pressure 185/85 H 12/12/16 00:26 Pulse Oxygen Saturation 92 12/12/16 00:26 Constitutional: Alert (Awake, Fully oriented. Normal and appropriate affect.Well appearing. Well nourished.), No apparent distress Oriented to: Time, Person, Place - HEENT Head: Normal (normocephalic, atraumatic.), Other (No cervical lymphadenopathy. No supraclavicular lymphadenopathy. Neck: No palpable mass, supple , trachea midline.) Eye: Normal (pupils equal, reactive to light, and round; EOMI, Sclera white) Oropharynx: Normal (Pharynx: Moist without exudate,Gums-no swelling, No oropharyngeal lesions or erythema, Mucous membranes are dry.) Tympanic Membrane: Normal (no discharge) ENT EAC: Normal (No oropharyngeal lesions or erythema. Mucous membranes are dry. ) TMJ: Normal Nose: No Symptoms Reported (septum midline, Nares patent, without discharge or bleeding.) Respiratory: Wheezes (Very few expiratory wheezes noted bilaterally.) Cardiovascular: Normal (RRR , Normal S1, S2. No murmurs, rubs, or gallops. PMI non-displaced. Carotids: no carotid bruits. No bradycardia or tachycardia. DP pulses 2+ bilaterally.) - GI Auscultation: Normal (normal active sounds) Palpation: Normal (Soft,non distended,nontender. No hepatosplenomegaly.) Tenderness: Non tender (No rebound or guarding) Sanders's Sign: Negative - Musculoskeletal Back: Normal (Non-Tender) Extremities: Normal (Normal tone, DP pulses 2+ bilaterally, No cyanosis or edema bilaterally, FROM bilaterally.), Other (Right foot: The clear plastic dressing is noted to be circumferentially wrapped around the midfoot with indentation in the skin and scant duskiness to the second and fourth digits. The first and third digits are pink and viable. There is red lymphatic streaking up right foot to [place]. There is no swelling of the foot. All sponges removed. The wound is open with excellent granulation tissue at the wound base. No necrotic tissue. No drainage. No abscess noted. There is no tunnelling of the wound. It is not tender. There is severe maceration and white surrounding tissue secondary to prolonged exposure to fluid on the wound.) - Integumentary Skin: Normal (Clean, dry, and intact. No rashes. No lesions.) Lymphatics: Normal (No cervical lymphadenopathy. No supraclavicular lymphadenopathy.) - Neurologic Memory Impaired: Normal Motor Function: Normal (Motor 5/5 throughout.Normal tone, Pulses 2+ No cyanosis or edema, FROM) Cranial Nerve: Normal (CN II-XII intact sensation, strength 5/5) Cerebellar: Normal (Babinski: toes downgoing bilaterally. Intact Finger to nose. Sensory grossly intact to light touch. Intact rapid alternating movements bilaterally. No pronator drift.) Mood Description: Normal (Fully oriented. Normal and appropriate affect.) Perception: Normal (Normal and appropriate affect.) - Lab Results 12/12/16 01:03 12/12/16 01:03 - Assessment/Plan (1) Cellulitis of right foot L03.115 - CELLULITIS OF RIGHT LOWER LIMB Acute Present on Admission: Yes Comment: There appears to mild cellulitis of the right foot. I recommended admission with intravenous antibiotics and serial examinations of the right foot to ensure improvement of color of the second and fourth digits and resolution of any superficial infection. I recommended discontinuation of the wound VAC for now and daily cleansing of the wound with application of Santyl. There is no indication for further surgical debridement at this time. I discussed the treatment plan at length with the patient and Dr. Us, emergency department physician. (2) Poorly controlled type 2 diabetes mellitus E11.65 - TYPE 2 DIABETES MELLITUS WITH HYPERGLYCEMIA Acute Present on Admission: Yes Comment: This will increase the risk of perioperative complications. (3) Tobacco abuse Z72.0 - TOBACCO USE Acute Present on Admission: Yes Comment: This will increase the risk of perioperative complications. Case Care Discussed with: Patient, Consultants (Dr. Us, emergency department. )
[2016-12-12] MEDS ORDERED: TEMAZEPAM 15 MG CAP PO PRN (13:31)
[2016-12-12] MEDS ORDERED: SODIUM CHLORIDE 0.9% 3 ML FLUSH FLUSH PRN (13:31)
[2016-12-12] MEDS ORDERED: GLUCOSE (ORAL GEL) 15 GM TUBE PO PRN (13:31)
[2016-12-12] MEDS ORDERED: BENZONATATE 100 MG PERLES PO PRN (13:31)
[2016-12-12] MEDS ORDERED: PROMETHAZINE 25 MG/ML VIAL IV PRN (13:31)
[2016-12-12] MEDS ORDERED: DEXTROSE 25 GM/50 ML PFS IV PRN (13:31)
[2016-12-12] MEDS ORDERED: DOCUSATE-SENNA CONCENTRATE TAB PO PRN (13:31)
[2016-12-12] MEDS ORDERED: SIMETHICONE 80 MG TAB PO PRN (13:31)
[2016-12-12] MEDS ORDERED: ONDANSETRON HCL 4 MG/2 ML VIAL IV PRN (13:31)
[2016-12-12] MEDS ORDERED: GLUCAGON 1 MG VIAL SQ PRN (13:31)
[2016-12-12] MEDS ORDERED: COLLAGENASE OINTMENT 30 GM TUBE TOP SCH (14:00)
[2016-12-12] MEDS: Albuterol/Ipratropium Neb 3 ML NEB NEB SCH ×2 (14:30→20:04)
[2016-12-12] MEDS: NS 1,000 ML IV SCH (14:56)
[2016-12-12] MEDS: Clindamycin 600 mg/D5W 50 ml 600 MG/50 ML IVB IV SCH ×2 (14:56→19:17)
[2016-12-12] MEDS: COLLAGENASE OINTMENT 30 GM TUBE TOP SCH (15:45)
[2016-12-12] MEDS ORDERED: Vaccine Screening Complete SCH (16:00)
[2016-12-12] MEDS: PIPERACILLIN AND TAZOBACTAM 4.5 GM in D5W 100 ML IV SCH ×2 (16:08→23:26)
[2016-12-12] MEDS: REGULAR INSULIN 100 UNITS/ML - 3 ML VIAL SQ SCH ×2 (16:16→21:42)
[2016-12-12] MEDS: ENOXAPARIN 40 MG/0.4 ML PFS SQ SCH (18:09)
[2016-12-12] MEDS: SODIUM CHLORIDE 0.9% 3 ML FLUSH FLUSH SCH (18:10)
[2016-12-12] MEDS: ATORVASTATIN 10 MG TAB PO SCH (21:30)
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
[2016-12-13] MEDS: Clindamycin 600 mg/D5W 50 ml 600 MG/50 ML IVB IV SCH ×4 (01:28→20:18)
[2016-12-13] MEDS: Albuterol/Ipratropium Neb 3 ML NEB NEB SCH ×4 (01:50→20:05)
[2016-12-13] MEDS: SODIUM CHLORIDE 0.9% 3 ML FLUSH FLUSH SCH ×2 (06:07→17:23)
[2016-12-13] MEDS: REGULAR INSULIN 100 UNITS/ML - 3 ML VIAL SQ SCH ×4 (06:08→21:51)
[2016-12-13] MEDS: MetFORMIN 500 MG IMMED RELEASE TAB PO SCH ×2 (06:09→16:42)
[2016-12-13] MEDS: MAGNESIUM OXIDE 400 MG TAB PO SCH ×3 (07:41→16:43)
[2016-12-13] MEDS: FUROSEMIDE 40 MG TAB PO SCH ×2 (07:42→16:42)
[2016-12-13] MEDS: POTASSIUM CHLORIDE 20 MEQ TAB PO SCH ×2 (07:42→17:22)
[2016-12-13] MEDS: METOPROLOL TARTRATE 50 MG TAB PO SCH ×2 (08:00→21:50)
[2016-12-13] MEDS: LISINOPRIL 20 MG TAB PO SCH (08:00)
[2016-12-13] MEDS: NICOTINE 21 MG PATCH TOP SCH ×2 (08:00→14:13)
[2016-12-13 08:50] LABS: MPV 7.6 fL (7.4-10.4)
[2016-12-13 09:13] LABS: BLOOD UREA NITROGEN 16 MG/DL (9-20); CALCIUM 8.5 MG/DL (8.4-10.2); CALCULATED OSMOLALITY 260 MOs/Kg (270-290); CHLORIDE 94 mEq/L (98-107); GLUCOSE 119 MG/DL (70-99); SODIUM LEVEL 134 mEq/L (137-146)
[2016-12-13] MEDS: PIPERACILLIN AND TAZOBACTAM 4.5 GM in D5W 100 ML IV SCH ×2 (09:32→17:22)
[2016-12-13] MEDS: COLLAGENASE OINTMENT 30 GM TUBE TOP SCH (10:24)
[2016-12-13] MEDS: VITAMINS,PRENATAL TABLET PO SCH (11:35)
[2016-12-13] MEDS: PROBIOTIC BLEND TAB PO SCH ×2 (11:35→17:22)
[2016-12-13] MEDS: THIAMINE 100 MG TAB PO SCH (11:35)
--- NOTE | 2016-12-13 12:25 | GENMEDPROG ---
Chief Complaint: Right foot cellulitis, status post amputation of the 5th toe on the right Subjective Note: Patient is feeling better. He is not ambulating. He denies any pain in his right leg. Is tolerating the antibiotics well. Current Medication List: Reviewed Currently: Reports: Tobacco Use/Hx, Alcohol Hx. Denies: Cough, Wheezing, MOORE, Nausea and Vomiting, Abdominal Pain, Fever/Chills, Ambulating - Physical Examination Vital Signs and I&O: Last Vital Signs Temp 98.6 F 12/13/16 05:22 Pulse 67 12/13/16 05:22 Resp 20 12/13/16 07:36 BP 166/76 12/13/16 07:36 Pulse Ox 94 12/13/16 08:37 Oxygen Pulse Oxygen Saturation 94 O2 Device Nasal Cannula Oxygen Flow Rate 2 Fraction of Inspired Oxygen ( FIO2) Intake & Output 12/10/16 12/11/16 12/12/16 12/13/16 23:59 23:59 23:59 23:59 Intake Total 657 435 Output Total 200 1500 Balance 457 -1065 General: Alert, Oriented x3, Cooperative, No acute distress HEENT: Mucous membr. moist/pink. negative: Anicteric Sclera Neck: Normal Trachea alignment, Normal inspection Lymphatics: negative: Inguinal Tenderness Respiratory: Normal - CTA, Excursion (Decreased). negative: Rhonchi, Wheezes Cardiovascular: Regular rate and rhythm, No Gallops,Rubs/Murmurs. negative: LE Edema GI: Normal bowel sounds, Soft, Non tender, Other (Normally wears an abdominal binder and was removed for this exam) Extremities/Musculoskeletal: Other (On the right foot the 2nd and 4th toes are still dark. There is less erythema extending above the bandage. Foot is warm) Skin: Erythema, Ulceration Neurological: Normal speech, Normal tone Psych/Mental Status: Appropriate, Normal Affect, Cooperative - Assessment (1) Cellulitis of right foot Acute L03.115 - CELLULITIS OF RIGHT LOWER LIMB Comment/Plan: Patient has completed his 1st day of IV antibiotics for a recurrent cellulitis. Appreciate the input of General surgery. PT is to his wound care (2) Poorly controlled type 2 diabetes mellitus Acute E11.65 - TYPE 2 DIABETES MELLITUS WITH HYPERGLYCEMIA Comment/Plan: Continue outpatient meds add sliding scale insulin. (3) Pulmonary edema Chronic J81.1 - CHRONIC PULMONARY EDEMA Qualifiers: Chronicity: chronic Qualified Code(s): J81.1 - Chronic pulmonary edema Comment/Plan: Will continue Lasix in the SOLANGE-inhibitor that he was on previously. Follow clinically. (4) Tobacco abuse Acute Z72.0 - TOBACCO USE Comment/Plan: Patient denies smoking since he was discharged from the hospital. Will use an nicotine patch p.r.n. (5) Alcohol withdrawal Acute F10.239 - ALCOHOL DEPENDENCE WITH WITHDRAWAL, UNSPECIFIED Qualifiers: Complication of substance-induced condition: with unspecified complication Qualified Code(s): F10.239 - Alcohol dependence with withdrawal, unspecified Comment/Plan: Will continue thiamine folate multiple vitamin but will not need detox protocol because he has been in the hospital and has not had any alcohol. Case Care Discussed with: Patient, Nursing Staff Education/Counseling Given To: Patient Education/Counseling Given Regarding: Diagnosis, Treatment Total Time: 30 minutes Critical Care: No Couseling Time (>50% in counseling/coordination): No Code: 21598 (12+)
--- NOTE | 2016-12-13 13:53 | PCM.SURGRO ---
- Subjective Chief Complaint: right foot cellulitis Hospital Day #: 2 (cellulitis of the right foot) Patient: Reports: Feels better, Tolerating Regular Diet (Diabetic diet), Voiding without difficulty, No Flatus, No Bowel Movement, Afebrile, Ambulating in Room. Denies: Nausea, Vomiting, Shortness of breath - Objective / Physical Exam Vital Signs: Temperature: 98.6 F (12/13/16 05:22) HR: 67 (12/13/16 05:22)RR: 20 (12/13/16 07: 36) BP: 166/76 (12/13/16 07:36)Pulse Ox: 94 (12/13/16 08:37) General: Alert, Oriented x3, Cooperative, No acute distress HEENT: Normal Respiratory: Normal - CTA Cardiovascular: Regular rate and rhythm Gastrointestinal: Soft, Bowel Sounds. negative: Distended, Tender Extremities: Other (RIGHT FOOT: There is no edema. The erythema has resolved with the exception of scant erythema of the dorsum of the foot. No purulent drainage from the lateral wound of the right foot There is no necrotic tissue. No tunneling noted. No abscesses noted. New dressings applied.). negative: Swelling, Edema Psych/Mental Status: Appropriate, Normal Affect, Cooperative. negative: Agitated, Anxious Neurological: Normal speech Skin: No rashes, Other (The second and fourth digits of the right foot are now more pink and appear more viable today.) Surgical wound: Other (As above) Lymphatics: Normal - Assessment and Plan (1) Cellulitis of right foot Acute L03.115 - CELLULITIS OF RIGHT LOWER LIMB Present on Admission: Yes Comment/Plan: The patient is hospital day #2. We will continue intravenous antibiotics. There is no indication for surgical debridement at this time. Dr. Lawrence will see the patient again, beginning on 12/13/16. The patient will benefit from reapplication of KCI wound VAC. I discussed the treatment plan with the patient at length. All questions were answered. He voiced understanding and agreement with the above plan. (2) Poorly controlled type 2 diabetes mellitus Acute E11.65 - TYPE 2 DIABETES MELLITUS WITH HYPERGLYCEMIA Present on Admission: Yes Comment/Plan: This will increase the risk of perioperative complications. (3) Tobacco abuse Acute Z72.0 - TOBACCO USE Present on Admission: No Comment/Plan: This will increase the risk of perioperative complications. - Review of Systems Yes All systems reviewed and were negative except as marked (twelve systems reviewed with the patient)
[2016-12-13] MEDS: ENOXAPARIN 40 MG/0.4 ML PFS SQ SCH (17:23)
[2016-12-13] MEDS: OXYCODONE HCL 5 MG TABLET PO PRN (20:33)
[2016-12-13] MEDS: ATORVASTATIN 10 MG TAB PO SCH (21:50)
[2016-12-14] MEDS: PIPERACILLIN AND TAZOBACTAM 4.5 GM in D5W 100 ML IV SCH ×4 (00:31→23:36)
[2016-12-14] MEDS: Albuterol/Ipratropium Neb 3 ML NEB NEB SCH ×4 (02:16→19:55)
[2016-12-14] MEDS: Clindamycin 600 mg/D5W 50 ml 600 MG/50 ML IVB IV SCH ×3 (02:48→13:47)
[2016-12-14] MEDS: OXYCODONE HCL 5 MG TABLET PO PRN (06:31)
[2016-12-14] MEDS: MetFORMIN 500 MG IMMED RELEASE TAB PO SCH ×2 (06:31→16:45)
[2016-12-14] MEDS: SODIUM CHLORIDE 0.9% 3 ML FLUSH FLUSH SCH ×2 (06:33→16:46)
[2016-12-14] MEDS: REGULAR INSULIN 100 UNITS/ML - 3 ML VIAL SQ SCH ×4 (06:33→20:49)
[2016-12-14] MEDS: LISINOPRIL 20 MG TAB PO SCH (08:25)
[2016-12-14] MEDS: METOPROLOL TARTRATE 50 MG TAB PO SCH ×2 (08:25→20:48)
[2016-12-14] MEDS: FUROSEMIDE 40 MG TAB PO SCH ×2 (08:25→16:45)
[2016-12-14] MEDS: MAGNESIUM OXIDE 400 MG TAB PO SCH ×3 (08:25→16:45)
[2016-12-14] MEDS: POTASSIUM CHLORIDE 20 MEQ TAB PO SCH ×2 (08:25→16:46)
[2016-12-14] MEDS: NICOTINE 21 MG PATCH TOP SCH ×2 (08:26→13:47)
[2016-12-14] MEDS: COLLAGENASE OINTMENT 30 GM TUBE TOP SCH (08:26)
[2016-12-14] MEDS: THIAMINE 100 MG TAB PO SCH (13:46)
[2016-12-14] MEDS: VITAMINS,PRENATAL TABLET PO SCH (13:47)
[2016-12-14] MEDS: PROBIOTIC BLEND TAB PO SCH ×2 (13:47→16:46)
[2016-12-14] MEDS: NS 1,000 ML IV SCH ×2 (13:47→23:35)
[2016-12-14] MEDS: ENOXAPARIN 40 MG/0.4 ML PFS SQ SCH (16:46)
[2016-12-14] MEDS: ATORVASTATIN 10 MG TAB PO SCH (20:48)
--- NOTE | 2016-12-14 21:03 | GENMEDPROG ---
Subjective Note: Patient seen this morning but note dictated later. The patient was sleeping but did arouse to my visit. He denies any new pain. Denies shortness of breath. Dressing changes have been done by physical therapy. Current Medication List: Reviewed Currently: Reports: Tobacco Use/Hx, Alcohol Hx. Denies: Cough, Wheezing, MOORE, Nausea and Vomiting, Abdominal Pain, Fever/Chills, Ambulating - Physical Examination Vital Signs and I&O: Last Vital Signs Temp 98.4 F 12/14/16 14:00 Pulse 81 12/14/16 20:48 Resp 16 12/14/16 19:56 BP 124/60 12/14/16 20:48 Pulse Ox 97 12/14/16 19:56 Oxygen Pulse Oxygen Saturation 97 O2 Device Nasal Cannula Oxygen Flow Rate 2 Fraction of Inspired Oxygen ( FIO2) Intake & Output 12/11/16 12/12/16 12/13/16 12/14/16 23:59 23:59 23:59 23:59 Intake Total 657 1336 1457 Output Total 200 3100 1525 Balance 091 -1448 -94 Patient's weight 77.791 kg General: Alert, Oriented x3, Cooperative, No acute distress HEENT: Mucous membr. moist/pink. negative: Anicteric Sclera Neck: Normal Trachea alignment, Normal inspection Lymphatics: negative: Inguinal Tenderness Respiratory: Normal - CTA, Excursion (Decreased). negative: Rhonchi, Wheezes Cardiovascular: Regular rate and rhythm, No Gallops,Rubs/Murmurs. negative: LE Edema GI: Normal bowel sounds, Soft, Non tender, Other (Normally wears an abdominal binder and was removed for this exam) Extremities/Musculoskeletal: Other (On the right foot the 2nd and 4th toes are still dark. There is less erythema extending above the bandage. Foot is warm) Skin: Erythema (Erythematous streak on left ankle is now hyper pigmented in no longer erythematous. Toes are still dusky. Skin is not warm), Ulceration Neurological: Normal speech, Normal tone Psych/Mental Status: Appropriate, Normal Affect, Cooperative Lab/DI/Studies Reviewed: Intake & Output 12/11/16 12/12/16 12/13/16 12/14/16 23:59 23:59 23:59 23:59 Intake Total 1017 1336 1457 Output Total 2400 3100 1525 Balance -1881 -2578 -68 Patient's weight 84.595 kg 74.843 kg 77.791 kg - Assessment (1) Cellulitis of right foot Acute L03.115 - CELLULITIS OF RIGHT LOWER LIMB Comment/Plan: Is on day 3 of IV antibiotics for recurrent cellulitis. General surgery is following. Erythema is better. (2) Poorly controlled type 2 diabetes mellitus Acute E11.65 - TYPE 2 DIABETES MELLITUS WITH HYPERGLYCEMIA Comment/Plan: Continue outpatient meds add sliding scale insulin. (3) Pulmonary edema Chronic J81.1 - CHRONIC PULMONARY EDEMA Qualifiers: Chronicity: chronic Qualified Code(s): J81.1 - Chronic pulmonary edema Comment/Plan: Will continue Lasix and the SOLANGE-inhibitor that he was on previously. Follow clinically. Pulmonary status is stable (4) Tobacco abuse Acute Z72.0 - TOBACCO USE Comment/Plan: Patient denies smoking since he was discharged from the hospital. Will use an nicotine patch p.r.n. (5) Alcohol withdrawal Acute F10.239 - ALCOHOL DEPENDENCE WITH WITHDRAWAL, UNSPECIFIED Qualifiers: Complication of substance-induced condition: with unspecified complication Qualified Code(s): F10.239 - Alcohol dependence with withdrawal, unspecified Comment/Plan: Will continue thiamine folate multiple vitamin but will not need detox protocol because he has been in the hospital and has not had any alcohol. Case Care Discussed with: Patient, Nursing Staff, Resource Management Education/Counseling Given To: Patient Education/Counseling Given Regarding: Diagnosis, Treatment Total Time: 30 minutes Code: 41429 (12+)
[2016-12-15] MEDS: Albuterol/Ipratropium Neb 3 ML NEB NEB SCH ×4 (01:50→20:45)
[2016-12-15] MEDS: REGULAR INSULIN 100 UNITS/ML - 3 ML VIAL SQ SCH ×4 (06:00→21:38)
[2016-12-15] MEDS: SODIUM CHLORIDE 0.9% 3 ML FLUSH FLUSH SCH ×2 (06:00→16:56)
[2016-12-15] MEDS: MetFORMIN 500 MG IMMED RELEASE TAB PO SCH ×2 (06:01→16:55)
[2016-12-15 06:07] LABS: MPV 7.7 fL (7.4-10.4)
[2016-12-15 06:46] LABS: BLOOD UREA NITROGEN 14 MG/DL (9-20); CALCIUM 9.1 MG/DL (8.4-10.2); CALCULATED OSMOLALITY 265 MOs/Kg (270-290); CHLORIDE 95 mEq/L (98-107); GLUCOSE 127 MG/DL (70-99); SODIUM LEVEL 136 mEq/L (137-146)
--- NOTE | 2016-12-15 08:12 | PCM.SURGRO ---
- Subjective Patient: Reports: No new complaints - Objective / Physical Exam Vital Signs: Temperature: 98.8 F (12/15/16 05:39) HR: 73 (12/15/16 08:00)RR: 18 (12/15/16 08: 00) BP: 153/72 (12/15/16 05:39)Pulse Ox: 95 (12/15/16 08:00) Respiratory: Diminished Extremities: Other (RIGHT FOOT WITH OPEN WOUND LATERALLY. ECCHYMOSIS OF RIGHT 2ND AND 4TH TOES NOTED) - Assessment and Plan (1) Cellulitis of right foot Acute L03.115 - CELLULITIS OF RIGHT LOWER LIMB Present on Admission: Yes Comment/Plan: Plan to continue wound VAC therapy as previously ordered while he was in the hospital at his last admission. The wound will take months to heal completely.
[2016-12-15] MEDS: PIPERACILLIN AND TAZOBACTAM 4.5 GM in D5W 100 ML IV SCH ×3 (09:22→23:05)
[2016-12-15] MEDS: MAGNESIUM OXIDE 400 MG TAB PO SCH ×3 (09:23→16:56)
[2016-12-15] MEDS: FUROSEMIDE 40 MG TAB PO SCH ×2 (09:23→16:54)
[2016-12-15] MEDS: POTASSIUM CHLORIDE 20 MEQ TAB PO SCH ×2 (09:23→16:56)
[2016-12-15] MEDS: COLLAGENASE OINTMENT 30 GM TUBE TOP SCH (09:24)
[2016-12-15] MEDS: METOPROLOL TARTRATE 50 MG TAB PO SCH ×2 (09:24→21:38)
[2016-12-15] MEDS: LISINOPRIL 20 MG TAB PO SCH (09:24)
[2016-12-15] MEDS: VITAMINS,PRENATAL TABLET PO SCH (13:59)
[2016-12-15] MEDS: THIAMINE 100 MG TAB PO SCH (14:00)
[2016-12-15] MEDS: PROBIOTIC BLEND TAB PO SCH ×2 (14:00→16:54)
[2016-12-15] MEDS: OXYCODONE HCL 5 MG TABLET PO PRN ×2 (14:02→19:02)
[2016-12-15] MEDS: NICOTINE 21 MG PATCH TOP SCH (14:03)
--- NOTE | 2016-12-15 14:44 | GENMEDPROG ---
Subjective Note: Patient in bed responsive follows commands. Still fair amount of right leg pain. Denies and difficulties breathing cough or phlegm production. po intake fair Notes Reviewed: Yes Events from last night noted and discussed with Clinical Staff Current Medication List: Reviewed Currently: Reports: MOORE, Tobacco Use/Hx, Alcohol Hx, Reflux Sx. Denies: Cough, Wheezing, Nausea and Vomiting, Abdominal Pain, Fever/Chills, Ambulating - Physical Examination Vital Signs and I&O: Last Vital Signs Temp 98.5 F 12/15/16 09:25 Pulse 73 12/15/16 09:25 Resp 18 12/15/16 09:25 BP 153/72 12/15/16 05:39 Pulse Ox 92 12/15/16 09:25 Oxygen Pulse Oxygen Saturation 92 O2 Device Nasal Cannula Oxygen Flow Rate 2 Fraction of Inspired Oxygen ( FIO2) Intake & Output 12/12/16 12/13/16 12/14/16 12/15/16 23:59 23:59 23:59 23:59 Intake Total 657 1336 1457 672 Output Total 200 3100 1825 1450 Balance 702 -3427 -141 -475 Patient's weight 77.791 kg 78.075 kg General: Alert, Oriented x3, Cooperative HEENT: Normal, PERRLA, EOMI, Anicteric Sclera Neck: Non-tender, Normal Trachea alignment, Limited range of motion Lymphatics: Normal Respiratory: Diminished, Rhonchi Cardiovascular: Regular rate, Normal S1, Normal S2, Murmurs GI: Normal bowel sounds, Soft, Non tender, No hepatospenomegaly, No masses Extremities/Musculoskeletal: Normal pulses, Edema, DJD, Other (RIGHT FOOT WITH OPEN WOUND LATERALLY. ECCHYMOSIS OF RIGHT 2ND AND 4TH TOES NOTED) Skin: Warm,Dry and Intact, No rashes, No breakdown Neurological: Normal speech, Cranial nerves 3-12 NL Psych/Mental Status: Anxious - Assessment (1) Cellulitis of right foot Acute L03.115 - CELLULITIS OF RIGHT LOWER LIMB Comment/Plan: Continue IV antibiotics and local wound care. Follow by surgery (2) Type 2 diabetes mellitus with diabetic polyneuropathy Acute E11.42 - TYPE 2 DIABETES MELLITUS WITH DIABETIC POLYNEUROPATHY Qualifiers: Diabetes mellitus long term care social worker insulin use: without long term care social worker use Qualified Code(s): E11.42 - Type 2 diabetes mellitus with diabetic polyneuropathy Comment/Plan: Continue medical therapy ADA diet, monitor sugars (3) HTN (hypertension) Acute I10 - ESSENTIAL (PRIMARY) HYPERTENSION Qualifiers: Hypertension type: essential hypertension Qualified Code(s): I10 - Essential (primary) hypertension Comment/Plan: Continue home meds, BP under control (4) PAD (peripheral artery disease) Acute I73.9 - PERIPHERAL VASCULAR DISEASE, UNSPECIFIED Comment/Plan: Continue aspirin Case Care Discussed with: Patient, Consultants, Nursing Staff, Noodle Maker Education/Counseling Given To: Patient Education/Counseling Given Regarding: Diagnosis, Treatment, Prognosis, Follow Up Total Time: 45 min . Critical Care: No Code: 55217 (12+)
[2016-12-15] MEDS: ENOXAPARIN 40 MG/0.4 ML PFS SQ SCH (16:56)
[2016-12-15] MEDS: ATORVASTATIN 10 MG TAB PO SCH (21:40)
[2016-12-16] MEDS: Albuterol/Ipratropium Neb 3 ML NEB NEB SCH ×4 (02:13→20:43)
[2016-12-16] MEDS: SODIUM CHLORIDE 0.9% 3 ML FLUSH FLUSH SCH ×2 (05:36→16:34)
[2016-12-16] MEDS: MetFORMIN 500 MG IMMED RELEASE TAB PO SCH ×2 (05:57→16:33)
[2016-12-16] MEDS: REGULAR INSULIN 100 UNITS/ML - 3 ML VIAL SQ SCH ×4 (05:57→20:40)
[2016-12-16] MEDS: MAGNESIUM OXIDE 400 MG TAB PO SCH ×3 (08:01→16:34)
[2016-12-16] MEDS: POTASSIUM CHLORIDE 20 MEQ TAB PO SCH ×2 (08:01→16:34)
[2016-12-16] MEDS: METOPROLOL TARTRATE 50 MG TAB PO SCH ×2 (08:02→20:41)
[2016-12-16] MEDS: PIPERACILLIN AND TAZOBACTAM 4.5 GM in D5W 100 ML IV SCH (08:02)
[2016-12-16] MEDS: FUROSEMIDE 40 MG TAB PO SCH ×2 (08:02→15:07)
[2016-12-16] MEDS: LISINOPRIL 20 MG TAB PO SCH (08:03)
[2016-12-16] MEDS: COLLAGENASE OINTMENT 30 GM TUBE TOP SCH (08:03)
--- NOTE | 2016-12-16 10:19 | PCM.SURGRO ---
- Subjective Patient: Reports: No new complaints - Objective / Physical Exam Vital Signs: Temperature: 98.8 F (12/16/16 05:54) HR: 62 (12/16/16 05:54)RR: 17 (12/16/16 05: 54) BP: 138/64 (12/16/16 05:54)Pulse Ox: 95 (12/16/16 08:00) Respiratory: Normal - CTA Cardiovascular: Regular rate and rhythm Extremities: Other (Right foot with wound VAC dressing intact. Second and 4th toes appear somewhat ecchymotic. No erythema. No tenderness.) - Assessment and Plan (1) Cellulitis of right foot Acute L03.115 - CELLULITIS OF RIGHT LOWER LIMB Present on Admission: Yes Comment/Plan: Continue wound VAC therapy and local wound care. Wound will take weeks to months to heal completely.
[2016-12-16] MEDS: VITAMINS,PRENATAL TABLET PO SCH (11:21)
[2016-12-16] MEDS: PROBIOTIC BLEND TAB PO SCH ×2 (11:21→16:34)
[2016-12-16] MEDS: THIAMINE 100 MG TAB PO SCH (11:22)
[2016-12-16] MEDS: NICOTINE 21 MG PATCH TOP SCH (11:23)
[2016-12-16] MEDS: CEFTRIAXONE 2 GM in D5W 100 ML IV SCH (14:09)
[2016-12-16] MEDS: NS 1,000 ML IV SCH (15:06)
[2016-12-16] MEDS: METRONIDAZOLE 500 MG TAB PO SCH (16:33)
[2016-12-16] MEDS: ENOXAPARIN 40 MG/0.4 ML PFS SQ SCH (16:34)
--- NOTE | 2016-12-16 18:32 | GENMEDPROG ---
Subjective Note: Patient bed responsive follows commands. Reports skin itching, right leg pain under control. Blood sugar under control with no episodes of hypoglycemia. Notes Reviewed: Yes Events from last night noted and discussed with Clinical Staff Current Medication List: Reviewed Currently: Reports: MOORE, Sputum, Tobacco Use/Hx, Alcohol Hx, Reflux Sx. Denies : Cough, Wheezing, Nausea and Vomiting, Abdominal Pain, Fever/Chills, Ambulating - Physical Examination Vital Signs and I&O: Last Vital Signs Temp 97.6 F 12/16/16 13:33 Pulse 67 12/16/16 13:33 Resp 18 12/16/16 13:33 BP 159/71 12/16/16 13:33 Pulse Ox 95 12/16/16 13:33 Oxygen Pulse Oxygen Saturation 95 O2 Device Nasal Cannula Oxygen Flow Rate 2 Fraction of Inspired Oxygen ( FIO2) Intake & Output 12/13/16 12/14/16 12/15/16 12/16/16 23:59 23:59 23:59 23:59 Intake Total 1336 1457 1392 2044 Output Total 3100 1825 2650 1376 Balance -1211 -921 -4125 668 Patient's weight 77.791 kg 78.075 kg 77.139 kg General: Alert, Oriented x3, Cooperative, No acute distress HEENT: Normal, PERRLA, EOMI, Anicteric Sclera Neck: Non-tender, Normal Trachea alignment, Limited range of motion Lymphatics: Normal Respiratory: Diminished, Rhonchi Cardiovascular: Regular rate, Normal S1, Normal S2, Murmurs GI: Normal bowel sounds, Soft, Non tender, No hepatospenomegaly, No masses Extremities/Musculoskeletal: Normal pulses, Edema, DJD, Other (RIGHT FOOT WITH OPEN WOUND LATERALLY. ECCHYMOSIS OF RIGHT 2ND AND 4TH TOES NOTED) Skin: Warm,Dry and Intact, No rashes, No breakdown Neurological: Normal speech, Cranial nerves 3-12 NL Psych/Mental Status: Anxious - Assessment (1) Cellulitis of right foot Acute L03.115 - CELLULITIS OF RIGHT LOWER LIMB Comment/Plan: Continue IV antibiotics and local wound care. Follow by surgery (2) Type 2 diabetes mellitus with diabetic polyneuropathy Acute E11.42 - TYPE 2 DIABETES MELLITUS WITH DIABETIC POLYNEUROPATHY Qualifiers: Diabetes mellitus skilled nursing insulin use: without termination clerk use Qualified Code(s): E11.42 - Type 2 diabetes mellitus with diabetic polyneuropathy Comment/Plan: Continue medical therapy ADA diet, monitor sugars (3) HTN (hypertension) Acute I10 - ESSENTIAL (PRIMARY) HYPERTENSION Qualifiers: Hypertension type: essential hypertension Qualified Code(s): I10 - Essential (primary) hypertension Comment/Plan: Continue home meds, BP under control (4) PAD (peripheral artery disease) Acute I73.9 - PERIPHERAL VASCULAR DISEASE, UNSPECIFIED Comment/Plan: Continue aspirin (5) Dyslipidemia Acute E78.5 - HYPERLIPIDEMIA, UNSPECIFIED Comment/Plan: continue lipitor Case Care Discussed with: Patient, Consultants, Nursing Staff Education/Counseling Given To: Patient Education/Counseling Given Regarding: Diagnosis, Treatment, Prognosis, Follow Up Total Time: 45 min . Critical Care: No Code: 42014 (12+)
[2016-12-16] MEDS: ATORVASTATIN 10 MG TAB PO SCH (20:40)
[2016-12-16] MEDS ORDERED: DIPHENHYDRAMINE 50 MG/ML VIAL IV ONE (21:22)
[2016-12-17] MEDS ORDERED: DIPHENHYDRAMINE 50 MG/ML VIAL IV PRN
[2016-12-17] MEDS: Albuterol/Ipratropium Neb 3 ML NEB NEB SCH ×2 (01:09→08:23)
[2016-12-17] MEDS: SODIUM CHLORIDE 0.9% 3 ML FLUSH FLUSH SCH (05:39)
[2016-12-17] MEDS: MetFORMIN 500 MG IMMED RELEASE TAB PO SCH (06:01)
[2016-12-17] MEDS: REGULAR INSULIN 100 UNITS/ML - 3 ML VIAL SQ SCH ×2 (06:02→11:33)
[2016-12-17 06:22] VITALS: BP 154/67; PULSE 70; TEMP 98.7
[2016-12-17] MEDS: MAGNESIUM OXIDE 400 MG TAB PO SCH ×2 (07:45→13:19)
[2016-12-17] MEDS: METRONIDAZOLE 500 MG TAB PO SCH ×2 (07:45→13:19)
[2016-12-17] MEDS: NS 1,000 ML IV SCH (07:46)
[2016-12-17] MEDS: METOPROLOL TARTRATE 50 MG TAB PO SCH (07:46)
[2016-12-17] MEDS: LISINOPRIL 20 MG TAB PO SCH (07:46)
[2016-12-17] MEDS: FUROSEMIDE 40 MG TAB PO SCH (07:46)
[2016-12-17] MEDS: POTASSIUM CHLORIDE 20 MEQ TAB PO SCH (07:46)
[2016-12-17] MEDS: COLLAGENASE OINTMENT 30 GM TUBE TOP SCH (07:47)
[2016-12-17 07:57] LABS: AUTOMATED BASOPHIL 0.3 % (0-2); AUTOMATED EOSINOPHIL 3.3 % (0-5); AUTOMATED LYMPH 5.1 % (17-44); AUTOMATED MONOCYTE 5.3 % (3-10); MPV 7.1 fL (7.4-10.4)
[2016-12-17 08:06] LABS: BLOOD UREA NITROGEN 15 MG/DL (9-20); CALCIUM 9.3 MG/DL (8.4-10.2); CALCULATED OSMOLALITY 263 MOs/Kg (270-290); CHLORIDE 97 mEq/L (98-107); GLUCOSE 129 MG/DL (70-99); SODIUM LEVEL 135 mEq/L (137-146)
[2016-12-17] MEDS ORDERED: LIDOCAINE 1% 30 ML VIAL (PRESERVATIVE FREE) ONE (09:00)
--- NOTE | 2016-12-17 10:11 | PCM.SURGRO ---
- Subjective Patient: Reports: Other (Had PICC line placed today) - Objective / Physical Exam Vital Signs: Temperature: 98.7 F (12/17/16 06:05) HR: 70 (12/17/16 07:46)RR: 18 (12/17/16 06: 05) BP: 154/67 (12/17/16 07:46)Pulse Ox: 93 (12/17/16 08:18) Extremities: Other (Right foot VAC wound dressing in place) - Assessment and Plan (1) Cellulitis of right foot Acute L03.115 - CELLULITIS OF RIGHT LOWER LIMB Present on Admission: Yes Comment/Plan: Continue wound VAC therapy.
--- NOTE | 2016-12-17 10:17 | DIRPT ---
CLINICAL DATA: Cellulitis and wound, needs 6 weeks of IV antibiotics. Long-term access requested. EXAM: PICC PLACEMENT WITH ULTRASOUND AND FLUOROSCOPY FLUOROSCOPY TIME: 6 seconds TECHNIQUE: After written informed consent was obtained, patient was placed in the supine position on angiographic table. Patency of the right basilic vein was confirmed with ultrasound with image documentation. An appropriate skin site was determined. Skin site was marked. Region was prepped using maximum barrier technique including cap and mask, sterile gown, sterile gloves, large sterile sheet, and Chlorhexidine as cutaneous antisepsis. The region was infiltrated locally with 1% lidocaine. Under real-time ultrasound guidance, the right basilic vein was accessed with a 21 gauge micropuncture needle; the needle tip within the vein was confirmed with ultrasound image documentation. Needle exchanged over a 018 guidewire for a peel-away sheath, through which a 5-Israeli single-lumen power injectable PICC trimmed to 40cm was advanced, positioned with its tip near the cavoatrial junction. Spot chest radiograph confirms appropriate catheter position. Catheter was flushed per protocol and secured externally. The patient tolerated procedure well. COMPLICATIONS: COMPLICATIONS none IMPRESSION: 1. Technically successful five Israeli single lumen power injectable PICC placement Electronically Signed By: Negin David M.D. On: 12/17/2016 10:14
--- NOTE | 2016-12-17 11:00 | PCM.DCS92 ---
- Final/Secondary Discharge Diagnosis (1) Cellulitis of right foot Acute L03.115 - CELLULITIS OF RIGHT LOWER LIMB Present on Admission: Yes Comment: Continue IV antibiotics and local wound care. PICC line in place for 2 weeks of IV Rocephin along with p.o. Flagyl. Follow by surgery (2) Type 2 diabetes mellitus with diabetic polyneuropathy Chronic E11.42 - TYPE 2 DIABETES MELLITUS WITH DIABETIC POLYNEUROPATHY Present on Admission: Yes without long term care social worker use E11.42 - Type 2 diabetes mellitus with diabetic polyneuropathy Comment: Continue medical therapy ADA diet, monitor sugars (3) HTN (hypertension) Chronic I10 - ESSENTIAL (PRIMARY) HYPERTENSION essential hypertension I10 - Essential (primary) hypertension Comment: Continue home meds, BP under control (4) PAD (peripheral artery disease) Chronic I73.9 - PERIPHERAL VASCULAR DISEASE, UNSPECIFIED Present on Admission: Yes Comment: Continue aspirin (5) Dyslipidemia Chronic E78.5 - HYPERLIPIDEMIA, UNSPECIFIED Present on Admission: Yes Comment: continue lipitor (6) Chronic respiratory failure Chronic J96.10 - CHRONIC RESPIRATORY FAILURE, UNSP W HYPOXIA OR HYPERCAPNIA Present on Admission: Yes hypoxia J96.11 - Chronic respiratory failure with hypoxia Plan/Goal/Comment: Continue nebulized bronchodilators on scheduled basis (7) Tobacco abuse Chronic Z72.0 - TOBACCO USE Present on Admission: No Comment: Patient denies smoking since he was discharged from the hospital. Will use an nicotine patch p.r.n. Discharge Disposition: Discharge w/ Home Health Discharge Condition: Improved Cognitive Discharge Status: Unimpaired Fuctional Discharge Status: Independent, Walker Assistance Physician Follow up/Referrals: None,No Provider [Family Provider] - One Week Luz Marina Garcia MD [NonStaff] - One Week Joe Lawrence MD [Staff Physician] - One Week Home Medications / New Prescriptions: New Metronidazole [Flagyl] 500 mg PO TID #42 tab Aspirin (Enteric Coated) [Halfprin] 325 mg PO DAILY #90 tab Ceftriaxone [Rocephin] 2 gm IV Q24H #14 sdv Continue Metformin HCl 500 mg PO BID Probiotic Blend [Deepali Q] 1 tab PO BIDLS #60 tablet POTASSIUM CHLORIDE Tablet [K-DUR 20 mEq Tablet*] 20 meq PO BIDWM #60 tab.er.prt Furosemide [Lasix] 40 mg PO 0800,1600 #60 tablet Atorvastatin Calcium [Lipitor] 10 mg PO HS #30 tablet Metoprolol Tartrate [Lopressor] 50 mg PO BID #60 tablet Magnesium Oxide [Mag-Ox] 400 mg PO TIDWM #100 tablet Ibuprofen Tablet [Motrin] 600 mg PO Q8H PRN #30 tablet PRN Reason: Mild Pain Or Fever Above 100.4 Nicotine [Nicoderm] 21 mg TOP Q24H #30 pat Vitamins, [ Vitamin] 1 tab PO DAILY@1200 #100 tablet Thiamine [Thiamine, Vitamin B-1] 100 mg PO DAILY@1200 #100 tablet Lisinopril [Zestril] 20 mg PO DAILY #30 tablet Albuterol Sulfate Nebs [Proventil, Ventolin] 3 ml NEB Q2H PRN #100 nebu PRN Reason: Dyspnea Albuterol/Ipratropium Neb [Duoneb] 3 ml NEB Q6H PRN #1 box PRN Reason: Shortness Of Breath Oxycodone Immediate Release [Oxycodone Immediate Release (OxyIR)] 5 mg PO Q4H PRN #60 tablet PRN Reason: Moderate To Severe Pain Discontinued Ampicillin Trihydrate 1,000 mg PO Q6 #40 capsule O2 Device: Room Air Diet at Discharge: Heart Healthy, Low Salt, 2200 Calorie, High Fiber Activity: As Tolerated, Limited, No Heavy Lifting Call Office For: Worsening Symptoms, Wound is Draining Pus, Fever over 101 F, Wound is Painful Discontinue use of:: Alcohol, All Illegal Substances - DC Summary Notes Hospital Course Note:: Discharge summary on patient named SILVIO DIOP admitted to [facility] on 12/12/16 by Cristiano Madison DO. Date of discharge is []. Total Time: 45 min . Code: 31033 (>30min.) - Physical Exam Vital Signs: Last Vital Signs Temp 98.7 F 12/17/16 06:05 Pulse 70 12/17/16 07:46 Resp 18 12/17/16 06:05 BP 154/67 12/17/16 07:46 Pulse Ox 93 12/17/16 08:18 Oxygen Pulse Oxygen Saturation 93 O2 Device Room Air Oxygen Flow Rate 2 Fraction of Inspired Oxygen ( FIO2) Constitutional: No apparent distress, Other (Appears older than his stated age) Oriented to: Time, Person, Place - HEENT Head: Normal Eye: Normal. negative: Scleral Icterus Oropharynx: negative: Membranes Dry Tympanic Membrane: Normal ENT EAC: Normal TMJ: Normal Nose: negative: Congestion - Respiratory/Cardiovascular Respiratory: Diminished, Rhonchi Cardiovascular: Normal, Systolic murmur - GI Auscultation: Normal Palpation: Normal. negative: Enlarged liver, Enlarged spleen Tenderness: Non tender, Other (Is wearing an abdominal binder but he removed it for this exam) Rectal Exam: Deferred - Exam Deferred: Yes - Musculoskeletal Back: Normal. negative: CVA Tenderness Extremities: Pedal Pulse (Decreased but intact) - Integumentary Skin: Normal, Warm, Dry Lymphatics: Normal - Neurologic Memory Impaired: Normal Motor Function: Abnormal Cranial Nerve: Normal Cerebellar: Ataxia. negative: Past-Pointing, Tremor Mood Description: Normal, Anxious Thought: Coherent Perception: Normal - Other Exam Other Exam Findings: Allergies No Known Allergies Allergy (Verified 12/12/16 00:34) Last Vital Signs Temp 98.7 F 12/17/16 06:05 Pulse 70 12/17/16 07:46 Resp 18 12/17/16 06:05 BP 154/67 12/17/16 07:46 Pulse Ox 93 12/17/16 08:18 Discharge Home Medication List Metformin HCl 500 mg PO BID 12/05/16 [History Confirmed 12/12/16] Albuterol Sulfate Nebs [Proventil, Ventolin] 3 ml NEB Q2H PRN #100 nebu [Rx Confirmed 12/12/16] Albuterol/Ipratropium Neb [Duoneb] 3 ml NEB Q6H PRN #1 box 12/11/16 [Rx Confirmed 12/12/16] Atorvastatin Calcium [Lipitor] 10 mg PO HS #30 tablet 12/11/16 [Rx Confirmed ] Furosemide [Lasix] 40 mg PO 0800,1600 #60 tablet 12/11/16 [Rx Confirmed 12/12/16 ] Ibuprofen Tablet [Motrin] 600 mg PO Q8H PRN #30 tablet 12/11/16 [Rx Confirmed ] Lisinopril [Zestril] 20 mg PO DAILY #30 tablet 12/11/16 [Rx Confirmed 12/12/16] Magnesium Oxide [Mag-Ox] 400 mg PO TIDWM #100 tablet 12/11/16 [Rx Confirmed ] Metoprolol Tartrate [Lopressor] 50 mg PO BID #60 tablet 12/11/16 [Rx Confirmed 12/12/16] Nicotine [Nicoderm] 21 mg TOP Q24H #30 pat 12/11/16 [Rx Confirmed 12/12/16] POTASSIUM CHLORIDE Tablet [K-DUR 20 mEq Tablet*] 20 meq PO BIDWM #60 tab.er.prt 12/11/16 [Rx Confirmed 12/12/16] Probiotic Blend [Deepali Q] 1 tab PO BIDLS #60 tablet 12/11/16 [Rx Confirmed 12/12] Thiamine [Thiamine, Vitamin B-1] 100 mg PO DAILY@1200 #100 tablet 12/11/16 [Rx Confirmed 12/12/16] Vitamins, [ Vitamin] 1 tab PO DAILY@1200 #100 tablet 12/11/16 [ Rx Confirmed 12/12/16] Aspirin (Enteric Coated) [Halfprin] 325 mg PO DAILY #90 tab 12/17/16 [Rx] Ceftriaxone [Rocephin] 2 gm IV Q24H #14 sdv 12/17/16 [Rx] Metronidazole [Flagyl] 500 mg PO TID #42 tab 12/17/16 [Rx] Oxycodone Immediate Release [Oxycodone Immediate Release (OxyIR)] 5 mg PO Q4H PRN #60 tablet 12/17/16 [Rx] New Discharge Medications (Rx) Aspirin (Enteric Coated) [Halfprin] 325 mg PO DAILY #90 tab 12/17/16 [Rx] Ceftriaxone [Rocephin] 2 gm IV Q24H #14 sdv 12/17/16 [Rx] Metronidazole [Flagyl] 500 mg PO TID #42 tab 12/17/16 [Rx] Oxycodone Immediate Release [Oxycodone Immediate Release (OxyIR)] 5 mg PO Q4H PRN #60 tablet 12/17/16 [Rx] Home Medications Metformin HCl 500 mg PO BID 12/05/16 Albuterol Sulfate Nebs [Proventil, Ventolin] 3 ml NEB Q2H PRN #100 nebu Albuterol/Ipratropium Neb [Duoneb] 3 ml NEB Q6H PRN #1 box 12/11/16 Atorvastatin Calcium [Lipitor] 10 mg PO HS #30 tablet 12/11/16 Furosemide [Lasix] 40 mg PO 0800,1600 #60 tablet 12/11/16 Ibuprofen Tablet [Motrin] 600 mg PO Q8H PRN #30 tablet 12/11/16 Lisinopril [Zestril] 20 mg PO DAILY #30 tablet 12/11/16 Magnesium Oxide [Mag-Ox] 400 mg PO TIDWM #100 tablet 12/11/16 Metoprolol Tartrate [Lopressor] 50 mg PO BID #60 tablet 12/11/16 Nicotine [Nicoderm] 21 mg TOP Q24H #30 pat 12/11/16 POTASSIUM CHLORIDE Tablet [K-DUR 20 mEq Tablet*] 20 meq PO BIDWM #60 tab.er.prt 12/11/16 Probiotic Blend [Deepali Q] 1 tab PO BIDLS #60 tablet 12/11/16 Thiamine [Thiamine, Vitamin B-1] 100 mg PO DAILY@1200 #100 tablet 12/11/16 Vitamins, [ Vitamin] 1 tab PO DAILY@1200 #100 tablet 12/11/16 Aspirin (Enteric Coated) [Halfprin] 325 mg PO DAILY #90 tab 12/17/16 Ceftriaxone [Rocephin] 2 gm IV Q24H #14 sdv 12/17/16 Metronidazole [Flagyl] 500 mg PO TID #42 tab 12/17/16 Oxycodone Immediate Release [Oxycodone Immediate Release (OxyIR)] 5 mg PO Q4H PRN #60 tablet 12/17/16 Abnormal Lab Results 12/16/16 12/16/16 12/16/16 11:17 16:05 20:39 WBC RDW Plt Count MPV Neut % (Auto) Lymph % (Auto) Absolute Neuts (auto) Sodium Chloride Glucose POC Capillary Glucose 137 H 152 H 149 H Calculated Osmolality 12/17/16 12/17/16 12/17/16 05:47 07:45 07:45 WBC 15.1 H RDW 14.8 H Plt Count 648 H MPV 7.1 L Neut % (Auto) 86.0 H Lymph % (Auto) 5.1 L Absolute Neuts (auto) 12.99 H Sodium 135 L Chloride 97 L Glucose 129 H POC Capillary Glucose 128 H Calculated Osmolality 263 L 12/17/16 07:45 12/17/16 07:45 Active Problems Cellulitis of right foot (Acute) L03.115 Continue IV antibiotics and local wound care. Follow by surgery Dyslipidemia (Acute) E78.5 continue lipitor HTN (hypertension) (Acute) I10 Continue home meds, BP under control PAD (peripheral artery disease) (Acute) I73.9 Continue aspirin
[2016-12-17] MEDS: PROBIOTIC BLEND TAB PO SCH (13:19)
[2016-12-17] MEDS: THIAMINE 100 MG TAB PO SCH (13:19)
[2016-12-17] MEDS: VITAMINS,PRENATAL TABLET PO SCH (13:20)
[2016-12-17] MEDS: CEFTRIAXONE 2 GM in D5W 100 ML IV SCH (13:20)
[2016-12-17] MEDS: NICOTINE 21 MG PATCH TOP SCH (13:28)
== END 2016-12-17 15:32 | disposition home health service (06) | DRG 603 ==
LOC: ED 00:19 → TUOBSINP 02:22 → EDINP 07:52 → OBSVTOIN 13:31 → MPS3 14:12
PROVIDERS: ADMIT Emergency Medicine; ATTEND Internal Medicine
PROC: 02HV33Z Insertion of Infusion Device into Superior Vena Cava, Percutaneous Approach (ICD-10-PCS; principal; 2016-12-17)
PROC: B5181ZA Fluoroscopy of Superior Vena Cava using Low Osmolar Contrast, Guidance (ICD-10-PCS; 2016-12-17)
PROC: B548ZZA Ultrasonography of Superior Vena Cava, Guidance (ICD-10-PCS; 2016-12-17)
DX: L03.115 Cellulitis of right lower limb (principal); J96.11 Chronic respiratory failure with hypoxia; E11.42 Type 2 diabetes mellitus with diabetic polyneuropathy; E11.65 Type 2 diabetes mellitus with hyperglycemia; F10.239 Alcohol dependence with withdrawal, unspecified; I10 Essential (primary) hypertension; I73.9 Peripheral vascular disease, unspecified; E78.5 Hyperlipidemia, unspecified; F17.210 Nicotine dependence, cigarettes, uncomplicated; I50.9 Heart failure, unspecified; J44.9 Chronic obstructive pulmonary disease, unspecified; M19.90 Unspecified osteoarthritis, unspecified site; M10.9 Gout, unspecified; Z86.73 Personal history of transient ischemic attack (TIA), and cerebral infarction without residual deficits; Z79.899 Other long term (current) drug therapy
CPT/HCPCS: 36415; 36569; 76937; 77001; 80048; 80053; 82962; 83735; 85025; 85027; 87040; 94640; 96372; 97161; 97164; 99285; 99406; G0378; J0696; J1200; J1650; J2001; J2543; J3490; J7060; J7620